=== PATIENT | male | born 1995 | race Caucasian/White ===

== ENCOUNTER 2020-01-27 22:11 | Inpatient (IN) | payer OTHER ==
[2020-01-28 00:16] LABS: Amphetamine Screen,Urine Not Detected (NotDetected); Barbiturate Screen,Urine Not Detected (NotDetected); Benzodiazepines Screen,Urine Not Detected (NotDetected); Cocaine Screen,Urine Not Detected (NotDetected); Methadone Screen, Urine Not Detected (NotDetected); Opiate Screen,Urine Not Detected (NotDetected); Oxycodone Screen, Urine Not Detected (NotDetected); Phencyclidine Screen,Urine Not Detected (NotDetected); Tricyclic Antidepressant,Urine Not Detected (NotDetected); Urn Cannabinoid Scrn Detected (NotDetected)
[2020-01-28] MEDS ORDERED: LORazepam 1 MG TAB PO STA ×3 (02:05→11:29)
[2020-01-28 02:33] LABS: HCT 43.6 % (39.0-53.0); HGB 14.4 gm/dL (13.0-17.5); MCH 28.8 pg (25.0-35.0); MCV 87.2 fL (80.0-100.0); Mean Platelet Volume 8.4; Platelet Count 215 k/uL (150-450); RDW 12.3 % (11.5-15.5); WBC 7.1 k/uL (3.8-10.6)
[2020-01-28 02:41] LABS: ALT 31 U/L (4-49); AST 33 U/L (17-59); African American GFR (CKD) >90 (>60 ml/min/1.73 sqM); Albumin 4.8 g/dL (3.5-5.0); Alkaline Phosphatase 84 U/L (38-126); Anion Gap 9 mmol/L; Blood Urea Nitrogen 20 mg/dL (9-20); Calcium 9.9 mg/dL (8.4-10.2); Carbon Dioxide 26 mmol/L (22-30); Chloride 105 mmol/L (98-107); Glucose 98 mg/dL (74-99); Non-African American GFR(CKD) >90 (>60 ml/min/1.73 sqM); Sodium 140 mmol/L (137-145); Total Bilirubin 0.3 mg/dL (0.2-1.3); Total Protein 7.4 g/dL (6.3-8.2)
--- NOTE | 2020-01-28 02:53 | ED ---
General Adult HPI - General Chief complaint: Psychiatric Symptoms Stated complaint: Mental Health Time Seen by Provider: 01/27/20 22:42 Source: patient, family, RN notes reviewed Mode of arrival: ambulatory Limitations: no limitations - History of Present Illness Initial comments: 24-year-old male presents to the emergency department for a chief complaint of depressive thoughts. She presents with his grandfather who is concerned. Patient states he was stating his girlfriend since he was 16 years old and not a few months ago she cheated on him and broke up with him. Patient states since this time he has felt worse and worse. He denies suicidal thoughts were that of harming himself but is slow to answer this question. Grandfather states he is concerned that patient has not been sleeping at all and hasn't been acting his normal self. Patient states he cannot stop his brain to try to sleep. Patient is very slow to answer all questions I ask him. - Related Data Allergies Allergy/AdvReac Type Severity Reaction Status Date / Time No Known Allergies Allergy Verified 01/27/20 22:33 Review of Systems ROS Statement: Those systems with pertinent positive or pertinent negative responses have been documented in the HPI. ROS Other: All systems not noted in ROS Statement are negative. Past Medical History Past Medical History: No Reported History History of Any Multi-Drug Resistant Organisms: None Reported Past Surgical History: No Surgical Hx Reported Past Psychological History: Depression Smoking Status: Never smoker Past Alcohol Use History: Rare Past Drug Use History: None Reported General Exam Limitations: no limitations General appearance: alert, in no apparent distress Head exam: Present: atraumatic, normocephalic, normal inspection Eye exam: Present: normal appearance, PERRL, EOMI. Absent: scleral icterus, conjunctival injection, periorbital swelling ENT exam: Present: normal exam, mucous membranes moist Neck exam: Present: normal inspection, full ROM. Absent: tenderness, meningismus, lymphadenopathy Respiratory exam: Present: normal lung sounds bilaterally. Absent: respiratory distress, wheezes, rales, rhonchi, stridor Cardiovascular Exam: Present: regular rate, normal rhythm, normal heart sounds. Absent: systolic murmur, diastolic murmur, rubs, gallop, clicks GI/Abdominal exam: Present: soft, normal bowel sounds. Absent: distended, tenderness, guarding, rebound, rigid Neurological exam: Present: alert Psychiatric exam: Present: depressed, flat affect Course Vital Signs 01/27/20 22:21 Temperature 98.1 F Pulse Rate 91 Respiratory 20 Rate Blood Pressure 148/83 O2 Sat by Pulse 100 Oximetry Medical Decision Making - Medical Decision Making Patient was seen and evaluated by EPS, recommending inpatient treatment. Patient will be transferred to an outpatient facility as we do not have any room in our mental health unit. Family is aware and agreeable to this. Patient to be certed by Dr. Cloud. Care signed out at 03:[address] Cloud - Lab Data Result diagrams: 01/28/20 02:17 01/28/20 02:17 Lab Results 01/27/20 01/28/20 01/28/20 Range/Units 23:55 02:17 02:17 WBC 7.1 (3.8-10.6) k/uL RBC 5.00 (4.30-5.90) m/uL Hgb 14.4 (13.0-17.5) gm/dL Hct 43.6 (39.0-53.0) % MCV 87.2 (80.0-100.0) fL MCH 28.8 (25.0-35.0) pg MCHC 33.0 (31.0-37.0) g/dL RDW 12.3 (11.5-15.5) % Plt Count 215 (150-450) k/uL Sodium 140 (137-145) mmol/L Potassium 4.0 (3.5-5.1) mmol/L Chloride 105 (98-107) mmol/L Carbon Dioxide 26 (22-30) mmol/L Anion Gap 9 mmol/L BUN 20 (9-20) mg/dL Creatinine 1.02 (0.66-1.25) mg/dL Est GFR (CKD-EPI)AfAm >90 (>60 ml/min/1.73 sqM) Est GFR (CKD-EPI)NonAf >90 (>60 ml/min/1.73 sqM) Glucose 98 (74-99) mg/dL Calcium 9.9 (8.4-10.2) mg/dL Total Bilirubin 0.3 (0.2-1.3) mg/dL AST 33 (17-59) U/L ALT 31 (4-49) U/L Alkaline Phosphatase 84 (38-126) U/L Total Protein 7.4 (6.3-8.2) g/dL Albumin 4.8 (3.5-5.0) g/dL Urine Opiates Screen Not Detected (NotDetected) Ur Oxycodone Screen Not Detected (NotDetected) Urine Methadone Screen Not Detected (NotDetected) Ur Propoxyphene Screen Not Detected (NotDetected) Ur Barbiturates Screen Not Detected (NotDetected) U Tricyclic Antidepress Not Detected (NotDetected) Ur Phencyclidine Scrn Not Detected (NotDetected) Ur Amphetamines Screen Not Detected (NotDetected) U Methamphetamines Scrn Not Detected (NotDetected) U Benzodiazepines Scrn Not Detected (NotDetected) Urine Cocaine Screen Not Detected (NotDetected) U Marijuana (THC) Screen Detected H (NotDetected) Disposition Clinical Impression: Depression Disposition: TRANSFER TO PSYCH HOSP/UNIT Condition: Fair Is patient prescribed a controlled substance at d/c from ED?: No Referrals: Lennox Kovacs DO [Primary Care Provider] - 1-2 days Time of Disposition: 02:53
[2020-01-28 03:19] LABS: Eosinophils # (M) 0.14 k/uL (0-0.7); Lymphocytes # (M) 2.63 k/uL (1.0-4.8); Monocytes # (M) 0.36 k/uL (0-1.0); Neutrophils # (M) 3.98 k/uL (1.3-7.7); Neutrophils % (M) 56 %; Nucleated Red Blood Cells 0 /100 WBC (0-0); Total Cells Counted 100
[2020-01-28] MEDS ORDERED: ACETAMINOPHEN TAB 325 MG TAB PO STA (11:29)
[2020-01-28] MEDS ORDERED: MAGNESIUM HYDROXIDE 2,400 MG/10 ML CUP PO PRN (19:53)
[2020-01-28] MEDS ORDERED: MAG HYDROX/AL HYDROX/SIMETH 30 ML CUP PO PRN (19:53)
[2020-01-28] MEDS: LORazepam 1 MG TAB PO PRN (23:01)
[2020-01-29] MEDS: ZIPRASIDONE 20 MG VIAL IM PRN ×2 (03:04→19:20)
[2020-01-29] MEDS: LORazepam 1 MG TAB PO PRN ×2 (06:45→16:29)
[2020-01-29] MEDS: NICOTINE 14MG/24HR PATCH TRANSDERM SCH (08:04)
[2020-01-29 08:14] LABS: Basophils % (A) 1 %; Eosinophils # (A) 0.1 k/uL (0-0.7); Eosinophils % (A) 1 %; HCT 46.8 % (39.0-53.0); HGB 15.5 gm/dL (13.0-17.5); Lymphocytes # (A) 1.4 k/uL (1.0-4.8); Lymphocytes % (A) 21 %; MCH 29.5 pg (25.0-35.0); MCHC 33.1 g/dL (31.0-37.0); MCV 89.2 fL (80.0-100.0); Mean Platelet Volume 8.3; Monocytes # (A) 0.6 k/uL (0-1.0); Monocytes % (A) 9 %; Neutrophils # (A) 4.3 k/uL (1.3-7.7); Neutrophils % (A) 64 %; Platelet Count 238 k/uL (150-450); RBC 5.25 m/uL (4.30-5.90); RDW 12.5 % (11.5-15.5); WBC 6.6 k/uL (3.8-10.6)
[2020-01-29 08:26] LABS: ALT 27 U/L (4-49); AST 27 U/L (17-59); African American GFR (CKD) >90 (>60 ml/min/1.73 sqM); Alkaline Phosphatase 68 U/L (38-126); Anion Gap 11 mmol/L; Blood Urea Nitrogen 15 mg/dL (9-20); Carbon Dioxide 26 mmol/L (22-30); Chloride 103 mmol/L (98-107); Cholesterol 232 mg/dL (<200); Glucose 127 mg/dL (74-99); HDL Cholesterol 66 mg/dL (40-60); LDL Cholesterol,Calculated 135 mg/dL (0-99); Non-African American GFR(CKD) >90 (>60 ml/min/1.73 sqM); Potassium 4.4 mmol/L (3.5-5.1); Sodium 140 mmol/L (137-145); Total Bilirubin 0.4 mg/dL (0.2-1.3); Total Protein 7.9 g/dL (6.3-8.2); Triglycerides 157 mg/dL (<150)
[2020-01-29] MEDS: QUEtiapine 25 MG TAB PO SCH ×3 (09:05→20:50)
[2020-01-29] MEDS: ESCITALOPRAM 10 MG TAB PO SCH ×2 (09:05→10:45)
--- NOTE | 2020-01-29 12:19 | P.HP ---
Psychiatric H&P - . H&P Date: 01/29/20 History & Physical: IDENTIFYING DATA: He is a 24-year-old small male admitted to the psychiatric unit voluntarily with depression and suicidal ideation HISTORY OF PRESENT ILLNESS: I reviewed the medical record and interviewed the patient. He was unable to provide a coherent history. He did not understand the reason for this hospitalization other than he came here at the behest of his grandfather. He perseverated that "all I need is to get back to work." He acknowledged that he "has not been doing well" since he broke up with his girlfriend 2 months ago. His answers to questions about depression, depressive symptoms, suicidality and psychotic symptoms werer confusing and very difficult to understand. According to the medical record his grandfather brought him to the emergency room. He was restless and fidgety. With the EPS nurse ask him about the breakup with girlfriend he closes his eyes and began rocking back and forth while breathing heavily. The EPS nurse spoke with his grandfather who reported that after the breakup he started drinking and missing work. 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 About 2 months ago (after breakup with girlfriend) he took the grandfather's truck to knot picker cloth his trailer in [place] to move back to [place]. The patient did not return and was found near [place] passed out in the truck with a loaded pistol. He told his gran dfather that he was not having thoughts of harming himself but made such statements as "what is it worth living?" His grandfather also reported that he has not been sleeping and has made paranoid statements about having cameras in the house or people watching him. The patient acknowledged that he has been unable to sleep but gave incoherent responses to other questions about his mood or thought. He did not answer questions about suicidal thoughts or wishes. PAST PSYCHIATRIC HISTORY: He denied a history of psychiatric hospitalizations. Denies he denied past history of mental health treatment PAST MEDICAL HISTORY: Denied ALLERGIES: NO KNOWN DRUG ALLERGIES SUBSTANCE USE HISTORY: He minimizes alcohol use and would not talk about the amount and frequency. He mentioned that he smoked marijuana in the past. His UDS was positive for marijuana and his breath alcohol level in the ED was negative. FAMILY PSYCHIATRIC/SUBSTANCE USE HISTORY: He is unaware of family history of psychiatric illness or substance use problems. LEGAL HISTORY: He denied SOCIAL HISTORY: He was born and raised in [place] by his mother and extended family. His parents when he was young. He has a younger brother and sister. He graduated from high school. He is not in the . He was single and has no children. He is working and living in [place] up until 2 months prior to admission. He broke up 2 months ago from a girl he began dating when he was 16 years old. MENTAL STATUS EXAM: He presented as a tall well-developed male with dark hair. He made eye contact but attempts did not appear to be attending to the interview. He had no distinguishing features or prominent physical abnormalities. He had a distressed facial expression. He was alert and oriented to person, place and time. He was restless to prevent agitated. He had no abnormal involuntary movements. Her speech was not spontaneous in her speech was halting with decreased volume and at times garbled and mumbled. His affect was dysphoric with a mixture of paranoia, anxiety and depression. He did not express clear suicidal ideation or wishes. He denied homicidal ideation. He appeared hopeless and helpless. He ruminated over this hospitalization. He did not express clear ID is of reference or paranoid ideation. He denied express delusional beliefs. His thinking was concrete and mentally organized, logical or coherent. He did not demonstrate clang associations, neologisms or blocking. He denied hallucinations and did not appear to be responding to internal stimuli. Global impression of intellect is average. He has limited awareness or understanding of his illness or need for mental health treatment. STRENGTHS: Supportive family, good health, history of stable employment WEAKNESSES: Increased alcohol use, recent breakup, poor insight or understanding of his mental illness or need for treatment IMPRESSION: He is a single 24-year-old male with no prior history of psychiatric illness or psychiatric treatment. He presented unit voluntarily with to mental history of increased alcohol use, impaired sleep, confusion, suicidal thoughts and paranoia. These symptoms developed after the breakup of a long-term relationship. The differential includes major to her mood disorder as well as new onset of a psychotic disorder. He should be treated inpatient basis with a combination of psychopharmacology and multimodal therapy. 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 Safety precautions. Consult medicine for initial physical exam and medical history. damper worker completed initial psychosocial assessment coordinate discharge and aftercare services. Begin Lexapro 10 mg daily and titrated according to clinical response and tolerance. Begin Geodon 25 mg by mouth twice a day and 50 mg at bedtime for treatment of paranoia and augmentation of the antidepressant. Ativan 1 mg by mouth 3 times a day when necessary for anxiety. Geodon 20 mg IM twice a day when necessary for agitation or aggressive behavior. Encourage participation in therapeutic groups and activities. Evaluate clinical status response to dg atment daily basis. Allergies Allergy/AdvReac Type Severity Reaction Status Date / Time No Known Allergies Allergy Verified 01/27/20 22:33 Vital Signs Temp 98.6 F 01/29/20 03:54 Pulse 86 01/29/20 03:54 Resp 16 01/29/20 03:54 BP 119/62 01/29/20 03:54 Pulse Ox 98 01/28/20 15:41 Laboratory Last Values WBC 6.6 k/uL (3.8-10.6) 01/29/20 08:00 RBC 5.25 m/uL (4.30-5.90) 01/29/20 08:00 Hgb 15.5 gm/dL (13.0-17.5) 01/29/20 08:00 Hct 46.8 % (39.0-53.0) 01/29/20 08:00 MCV 89.2 fL (80.0-100.0) 01/29/20 08:00 MCH 29.5 pg (25.0-35.0) 01/29/20 08:00 MCHC 33.1 g/dL (31.0-37.0) 01/29/20 08:00 RDW 12.5 % (11.5-15.5) 01/29/20 08:00 Plt Count 238 k/uL (150-450) 01/29/20 08:00 Neutrophils % 64 % 01/29/20 08:00 Neutrophils % (Manual) 56 % 01/28/20 02:17 Lymphocytes % 21 % 01/29/20 08:00 Lymphocytes % (Manual) 37 % 01/28/20 02:17 Monocytes % 9 % 01/29/20 08:00 Monocytes % (Manual) 5 % 01/28/20 02:17 Eosinophils % 1 % 01/29/20 08:00 Eosinophils % (Manual) 2 % 01/28/20 02:17 Basophils % 1 % 01/29/20 08:00 Neutrophils # 4.3 k/uL (1.3-7.7) 01/29/20 08:00 Neutrophils # (Manual) 3.98 k/uL (1.3-7.7) 01/28/20 02:17 Lymphocytes # 1.4 k/uL (1.0-4.8) 01/29/20 08:00 Lymphocytes # (Manual) 2.63 k/uL (1.0-4.8) 01/28/20 02:17 Monocytes # 0.6 k/uL (0-1.0) 01/29/20 08:00 Monocytes # (Manual) 0.36 k/uL (0-1.0) 01/28/20 02:17 Eosinophils # 0.1 k/uL (0-0.7) 01/29/20 08:00 Eosinophils # (Manual) 0.14 k/uL (0-0.7) 01/28/20 02:17 Basophils # 0.0 k/uL (0-0.2) 01/29/20 08:00 Nucleated RBCs 0 /100 WBC (0-0) 01/28/20 02:17 Manual Slide Review Performed 01/28/20 02:17 Sodium 140 mmol/L (137-145) 01/29/20 08:00 Potassium 4.4 mmol/L (3.5-5.1) 01/29/20 08:00 Chloride 103 mmol/L (98-107) 01/29/20 08:00 Carbon Dioxide 26 mmol/L (22-30) 01/29/20 08:00 Anion Gap 11 mmol/L 01/29/20 08:00 BUN 15 mg/dL (9-20) 01/29/20 08:00 Creatinine 0.90 mg/dL (0.66-1.25) 01/29/20 08:00 Est GFR (CKD-EPI)AfAm >90 (>60 ml/min/1.73 sqM) 01/29/20 08:00 Est GFR (CKD-EPI)NonAf >90 (>60 ml/min/1.73 sqM) 01/29/20 08:00 Glucose 127 mg/dL (74-99) H 01/29/20 08:00 Calcium 10.0 mg/dL (8.4-10.2) 01/29/20 08:00 Total Bilirubin 0.4 mg/dL (0.2-1.3) 01/29/20 08:00 AST 27 U/L (17-59) 01/29/20 08:00 ALT 27 U/L (4-49) 01/29/20 08:00 Alkaline Phosphatase 68 U/L (38-126) 01/29/20 08:00 Total Protein 7.9 g/dL (6.3-8.2) 01/29/20 08:00 Albumin 5.0 g/dL (3.5-5.0) 01/29/20 08:00 Triglycerides 157 mg/dL (<150) H 01/29/20 08:00 Cholesterol 232 mg/dL (<200) H 01/29/20 08:00 LDL Cholesterol, Calc 135 mg/dL (0-99) H 01/29/20 08:00 HDL Cholesterol 66 mg/dL (40-60) H 01/29/20 08:00 TSH 3.090 mIU/L (0.465-4.680) 01/29/20 08:00 Urine Opiates Screen Not Detected (NotDetected) 01/27/20 23:55 Ur Oxycodone Screen Not Detected (NotDetected) 01/27/20 23:55 Urine Methadone Screen Not Detected (NotDetected) 01/27/20 23:55 Ur Propoxyphene Screen Not Detected (NotDetected) 01/27/20 23:55 Ur Barbiturates Screen Not Detected (NotDetected) 01/27/20 23:55 U Tricyclic Antidepress Not Detected (NotDetected) 01/27/20 23:55 Ur Phencyclidine Scrn Not Detected (NotDetected) 01/27/20 23:55 Ur Amphetamines Screen Not Detected (NotDetected) 01/27/20 23:55 U Methamphetamines Scrn Not Detected (NotDetected) 01/27/20 23:55 U Benzodiazepines Scrn Not Detected (NotDetected) 01/27/20 23:55 Urine Cocaine Screen Not Detected (NotDetected) 01/27/20 23:55 U Marijuana (THC) Screen Detected (NotDetected) H 01/27/20 23:55 01/29/20 11:57
[2020-01-29 14:01] LABS: Hemoglobin A1C 5.2 % (4.0-6.0)
--- NOTE | 2020-01-29 16:38 | P.CONS ---
History of Present Illness - Reason for Consult Acute psychosis scleral medical clearance - History of Present Illness Patient is a 24-year-old male admitted because of acute psychosis patient had a recent breakup, patient came from [place] to [place] to commit suicide patient is completely incoherent and doesn't make sense patient does have tangentiality and patient does repeat himself. Patient drug screen is positive for marijuana may have used some other drugs that are undetectable and regular urine drug screen. Unable to get many much of the history although patient really give me history of chest pain cannot elaborate and then he said his fine. Review of Systems REVIEW OF SYSTEMS: Unable to obtain due to his acute psychosis Past Medical History Past Medical History: No Reported History History of Any Multi-Drug Resistant Organisms: None Reported Past Surgical History: No Surgical Hx Reported Past Psychological History: Depression Smoking Status: Never smoker Past Alcohol Use History: Rare Past Drug Use History: None Reported Medications and Allergies Allergies Allergy/AdvReac Type Severity Reaction Status Date / Time No Known Allergies Allergy Verified 01/27/20 22:33 Physical Exam Vitals: Vital Signs Temp Pulse Resp BP 01/29/20 13:00 97.8 F 01/29/20 03:54 98.6 F 86 16 119/62 01/28/20 19:49 100.4 F H 80 17 150/79 PHYSICAL EXAMINATION: GENERAL: The patient is alert and oriented x3, not in any acute distress. Well developed, well nourished. HEENT: Pupils are round and equally reacting to light. EOMI. No scleral icterus. No conjunctival pallor. Normocephalic, atraumatic. No pharyngeal erythema. No thyromegaly. CARDIOVASCULAR: S1 and S2 present. No murmurs, rubs, or gallops. PULMONARY: Chest is clear to auscultation, no wheezing or crackles. ABDOMEN: Soft, nontender, nondistended, normoactive bowel sounds. No palpable or ganomegaly. MUSCULOSKELETAL: No joint swelling or deformity. EXTREMITIES: No cyanosis, clubbing, or pedal edema. NEUROLOGICAL: Gross neurological examination did not reveal any focal deficits. SKIN: No rashes. Results CBC & Chem 7: 01/29/20 08:00 01/29/20 08:00 Labs: Abnormal Lab Results - Last 24 Hours (Table) 01/29/20 Range/Units 08:00 Glucose 127 H (74-99) mg/dL Triglycerides 157 H (<150) mg/dL Cholesterol 232 H (<200) mg/dL LDL Cholesterol, Calc 135 H (0-99) mg/dL HDL Cholesterol 66 H (40-60) mg/dL Assessment and Plan Plan: -Acute psychosis probably secondary to drug overdose management as per primary service -Major depression with suicidal ideation -Hyperlipidemia: Continue addressed as an outpatient starting with dietary manag ement Patient symptoms of altered mental status appears to be secondary to acute psychosis. Further management as per primary service.
[2020-01-29] MEDS ORDERED: QUEtiapine 50 MG TAB PO SCH (21:00)
[2020-01-30] MEDS: ZIPRASIDONE 20 MG VIAL IM PRN (05:27)
[2020-01-30] MEDS: ESCITALOPRAM 10 MG TAB PO SCH (09:16)
[2020-01-30] MEDS: NICOTINE 14MG/24HR PATCH TRANSDERM SCH ×2 (09:16→09:25)
[2020-01-30] MEDS: LORazepam 1 MG TAB PO PRN (09:17)
[2020-01-30] MEDS: QUEtiapine 25 MG TAB PO SCH (09:37)
[2020-01-30] MEDS ORDERED: ZIPRASIDONE 20 MG VIAL IM STA (09:41)
--- NOTE | 2020-01-30 13:36 | P.PN ---
Progress Note - Text Progress Note Date: 01/30/20 Clinical Problems: Unspecified psychotic disorder, rule out major depressive disorder with psychosis. Rule out schizophrenia, rule out schizoaffective disorder depressed, rule out rule out bipolar disorder depressed with psychotic features Interim history: I reviewed the medical record and attempted to interview the patient. He would not make eye contact or respond to questions. In the morning he was standing in the doorway with 1 foot in his room and the other in hallway. He was staring blankly at the door frame. He would not talk. He stood still except for clenching and releasing his fists. He is had no episodes of behavioral dyscontrol but is receive IM dose of Geodon due to concerns of potential aggressive behavior. He took his morning dose of Lexapro today and the initial dose of Seroquel last night. Mental status exam: He presented as a tall can see groomed 24-year-old male who is mute. He made no eye contact and would not answer questions. He had marked psychomotor immobility. He had distressed and preoccupied facial expression. He appeared paranoid and frightened. I could not evaluate his thought content her thought process due to the paucity of speech. He does not appear to be responding to internal stimuli. Assessment: He is markedly distressed. He presentation may not be related to a primary mood disorder but could be manifestation of major psychotic disorder. Plan: Continue inpatient treatment. Continue seeing precautions. Continue Seroquel and titrate to 400 mg at bedtime. Continue Lexapro 10 mg daily. Continue Geodon 20 mg IM twice a day for agitation acute psychosis. Continue Ativan 1 mg 3 times a day when necessary for anxiety and restlessness. Evaluate clinical status response to treatment on a daily basis. Encourage participation as tolerated in therapeutic groups and activities.
[2020-01-30] MEDS ORDERED: QUEtiapine 100 MG TAB PO SCH (21:00)
[2020-01-31] MEDS ORDERED: OLANZapine 5 MG TAB PO STA (00:33)
[2020-01-31] MEDS: OLANZapine 10 MG VIAL IM STA ×2 (00:35→00:45)
[2020-01-31] MEDS: LORazepam 1 MG TAB PO PRN ×2 (06:15→15:06)
[2020-01-31] MEDS: ESCITALOPRAM 10 MG TAB PO SCH (08:14)
[2020-01-31] MEDS: NICOTINE 14MG/24HR PATCH TRANSDERM SCH (08:15)
[2020-01-31] MEDS: LORazepam 2 MG/ML INJ IM PRN ×2 (08:36→18:12)
--- NOTE | 2020-01-31 14:01 | P.PN ---
Progress Note - Text Progress Note Date: 01/31/20 Clinical Problems: Schizophrenia, rule out major depressive disorder with psychosis, rule out schizoaffective disorder depressed, rule out rule out bipolar disorder depressed with psychotic features Interim history: I reviewed the medical record, attempted to interview the patient and discuss his treatment and treatment plan during team meeting. He is marked psychomotor slowing and unresponsiveness consistent with catatonia. This morning he was standing motionless in the hallway. He would not make eye contact or respond to questions. After receiving 1 mg of Ativan IM, he made eye contact and spoke in a soft barely audible voice. I asked about "voices" he shook his head to the positive but would not talk about the experience. He was complying with 100 mg dose of Seroquel last night. He had several episodes of immobility and received several doses of Geodon IM as well as olanzapine 5 mg IM. Mental status exam: He presented as a tall can see groomed 24-year-old male who is mute. He made no eye contact and would not answer questions. He had marked psychomotor immobility. He had distressed and preoccupied facial expression. He appeared paranoid and frightened. I could not evaluate his thought content her thought process due to the paucity of speech. He does not appear to be responding to internal stimuli. Assessment: She has signs and symptoms of catatonia. I suspect that his presentation is related to the new onset of a primary psychotic disorder. Plan: Continue inpatient treatment. Continue seeing precautions. Continue Seroquel and titrate to 400 mg at bedtime. He refuses oral Seroquel then switch over to an antipsychotic that is available as an oral and intramuscular preparation. Continue Lexapro 10 mg daily. Ativan 1 mg IM every 6 hours when necessary for restlessness. Continue Geodon 20 mg IM twice a day for agitation acute psychosis. Continue Ativan 1 mg by mouth 3 times a day when necessary for anxiety and restlessness. Evaluate clinical status response to treatment on a daily basis. Encourage participation as tolerated in therapeutic groups and activities.
[2020-01-31] MEDS ORDERED: OLANZapine 10 MG VIAL IM PRN (14:20)
[2020-01-31] MEDS ORDERED: QUEtiapine 200 MG TAB PO SCH (21:00)
[2020-02-01] MEDS: LORazepam 1 MG TAB PO PRN (06:21)
[2020-02-01] MEDS: ESCITALOPRAM 10 MG TAB PO SCH (08:25)
[2020-02-01] MEDS: NICOTINE 14MG/24HR PATCH TRANSDERM SCH (08:25)
[2020-02-01] MEDS: LORazepam 2 MG/ML INJ IM PRN (13:25)
[2020-02-01] MEDS: HALOPERIDOL LACTATE 5 MG/ML 1 ML VIAL IM PRN (13:40)
--- NOTE | 2020-02-01 13:53 | P.MHFACE ---
Face to Face Restrain/Seclus - Evaluation Patient's Immediate Situation: Endangers self safety Patient's Reaction to the Intervention: Fearful, Bizarre, Restless Patient's Medical & Behavioral Condition: Drowsy, Auditory hallucinations, Bizarre behavior Need to Continue or Terminate Restraint or Seclusion: Continue
--- NOTE | 2020-02-01 14:33 | P.PN ---
Progress Note - Text Progress Note Date: 02/01/20 Clinical Problems: Schizophrenia with catatonic behavior, rule out major depressive disorder with psychosis, rule out schizoaffective disorder depressed, rule out rule out bipolar disorder depressed with psychotic features Interim history: I reviewed the medical record, attempted to interview the patient and discuss his treatment and treatment plan during team meeting. He continues to show signs and symptoms of catatonia with marked psychomotor slowing and mutism. He periodically mumbles about psychotic symptoms such as "hearing voices". I observed him standing in the hallway believing his mouth as though he were responding to internal stimuli. He began choking himself in the lunchroom. He would not respond to redirection by staff. His management required restraint. I change his when necessary medications from olanzapine to help so the nursing Administered built antipsychotic and Ativan. Mental status exam: He presented as a tall can see groomed 24-year-old male who is mute. He made not make eye contact and would not answer questions. He had marked psychomotor immobility. He had distressed and preoccupied facial expression. He appeared paranoid and frightened. I could not evaluate his thought content her thought process due to the paucity of speech. He does appear to be responding to internal stimuli. Assessment: He is acutely psychotic, paranoid and has marked psychomotor retardation. I suspect that his presentation is related to the new onset of a primary psychotic disorder. Plan: Continue inpatient treatment. Continue seeing precautions. Continue Seroquel and titrate to 400 mg at bedtime. He refuses oral Seroquel then switch over to an antipsychotic that is available as an oral and intramuscular preparation. Continue Lexapro 10 mg daily. discontinue Geodon 10 mg IM3 times a day. Begin Haldol 5 mg IM every 6 hours when necessary for agitation acute psychosis. Increase IM Ativan to 2 mg every 6 hours for agitation acute psychosis. Continue Ativan 1 mg by mouth 3 times a day when necessary for anxiety and restlessness. Evaluate clinical status response to treatment on a daily basis. Encourage participation as tolerated in therapeutic groups and activities.
[2020-02-01] MEDS ORDERED: QUEtiapine 100 MG TAB PO SCH (21:00)
[2020-02-02] MEDS: ESCITALOPRAM 10 MG TAB PO SCH (09:22)
[2020-02-02] MEDS: LORazepam 1 MG TAB PO PRN (09:22)
[2020-02-02] MEDS: NICOTINE 14MG/24HR PATCH TRANSDERM SCH (09:22)
[2020-02-02] MEDS: HALOPERIDOL LACTATE 5 MG/ML 1 ML VIAL IM PRN (10:00)
--- NOTE | 2020-02-02 11:07 | P.PN ---
Progress Note - Text Progress Note Date: 02/02/20 Interval history: Patient seen in cross [facility] today. Patient had been placed in restraints due to concerns of self-harm and this is also face to face evaluation regarding restraint placement. Per nursing staff patient was choking himself and was subsequently placed in restraints for safety. He had been on one-to-one precautions. He hadn't episode yesterday where he was placed in restraints per history. Patient per staff has been not very verbal. Patient does not relay anything about the incident prompting restraints. He is able to say his first name. At the end of the session he makes reference to his grandfather bringing him into the hospital. Mental status exam: Patient is able to open his eyes. He is oriented to his first name. He is minimally verbal. At the end of the session he does make reference to his grandfather bringing him into the hospital. He does not show any current agitation. He does not make any statements about thoughts of harm to self or others. Plan: Patient was placed in 4-point restraints for his safety. We'll continue to monitor his status and monitor his ongoing response to medication regimen. After restraints are removed pending patient status we will look at one-to-one monitoring.
[2020-02-02] MEDS: LORazepam 2 MG/ML INJ IM PRN (16:50)
--- NOTE | 2020-02-02 16:51 | P.PN ---
Progress Note - Text Progress Note Date: 02/02/20 Restraining evaluation: Patient is seen again for evaluation after being placed in restraints. Patient was taken out of restraints earlier today and then was found by staff choking himself again and was placed back in restraints. Patient is seen in the restraining room. He has his eyes closed and is nonverbal. He is noted to have some tremoring of the lower extremities which stops towards the end of the session. He does not display any agitation. He does not open his eyes with command. He does not respond verbally to any questions. We'll continue to monitor his response to treatment and monitor for any medication side effects.
[2020-02-02] MEDS: QUEtiapine 400 MG TAB PO SCH (23:51)
[2020-02-03] MEDS: LORazepam 2 MG/ML INJ IM PRN ×2 (09:55→16:47)
[2020-02-03] MEDS: ESCITALOPRAM 10 MG TAB PO SCH (09:55)
[2020-02-03] MEDS: NICOTINE 14MG/24HR PATCH TRANSDERM SCH (09:55)
[2020-02-03] MEDS: ACETAMINOPHEN TAB 325 MG TAB PO PRN ×2 (14:16→19:57)
--- NOTE | 2020-02-03 14:28 | CT ---
EXAMINATION TYPE: CT brain wo con DATE OF EXAM: 02/03/2020 COMPARISON: None HISTORY: Patient poor historian. Fall. Hit head. Pain. CT DLP: 1012.7 mGycm Automated exposure control for dose reduction was used. Ventricles and sulci appear normal. There is no mass effect nor midline shift. There is no sign of in tracranial hemorrhage. The calvarium is intact. There is no evidence of cerebral edema. IMPRESSION: Negative unenhanced head CT scan.
--- NOTE | 2020-02-03 16:11 | P.PN ---
Progress Note - Text Progress Note Date: 02/03/20 Interval history: Patient is seen in cross coverage again today. He had a fall earlier on the unit, relays that he lost his balance and made reference to hitting his head. A CT of the brain was done which was negative. He does describe having some headache. He has been given Tylenol. He does state that he is compliant with taking his psychotropic medications today he is holding some pictures of family in his hand and is able to name members of his family. Mental status exam: He is alert, seated in the seclusion/restraint room with staff present. He is verbal. He describes his mood as sad related to missing his family. He denies any thoughts of harm to self or others, he denies any current hallucinations. He seems to relay that he was having some hallucinations previously. Per staff it sounds like he had verbalized some concerns about a microchip earlier. Plan: Patient will be maintained on current psychotropic medication regimen. 2 new to monitor for any medication side effects and monitor his ongoing response to treatment. We'll continue to monitor regarding any self-harm behaviors.
[2020-02-03] MEDS: QUEtiapine 400 MG TAB PO SCH (19:57)
[2020-02-03] MEDS: HALOPERIDOL LACTATE 5 MG/ML 1 ML VIAL IM PRN (20:31)
[2020-02-04] MEDS: ESCITALOPRAM 10 MG TAB PO SCH (09:05)
[2020-02-04] MEDS: HALOPERIDOL 5 MG TAB PO SCH ×4 (09:51→23:55)
[2020-02-04] MEDS: LORazepam 1 MG TAB PO PRN (09:52)
--- NOTE | 2020-02-04 14:22 | P.PN ---
Progress Note - Text Progress Note Date: 02/04/20 Clinical Problems: Schizophrenia, rule out major depressive disorder with psychosis, rule out schizoaffective disorder depressed, rule out rule out bipolar disorder depressed with psychotic features Interim history: I reviewed the medical record, attempted to interview the patient and discuss his treatment and treatment plan during team meeting. He was placed in restraints twice on Tuesday for self injurious behavior. We placed him on one-to-one when he began attempting to choke himself on Tuesday. Over the weekend he began banging his head. Computed tomography scan from 02/03/2020 was negative. This afternoon the patient was struggling with the one-to-one staff attempting to bang his head on the window and a bed rail. Nursing reported that he lifted the mattress and hit his head on the metal bar on the bed. The medicine golf tournament consultant recommended MRI and neurology consult. She was minimally responsive. He made occasional eye contact. In response to questions about auditory hallucinations (places) he thought his head to the positive. Nursing reports that he is often appears to be responding to internal stimuli. Mental status exam: He presented as a tall can see groomed 24-year-old male who is mute. He made no eye contact and would not answer questions. He had marked psychomotor immobility. He had distressed and preoccupied facial expression. He appeared paranoid and frightened. I could not evaluate his thought content her thought process due to the paucity of speech. He does not appear to be responding to internal stimuli. Assessment: He remains markedly psychotic and is becoming more self injurious. Plan: Continue inpatient treatment. Continue safety recautions with one-to-one. Continue Seroquel 400 mg at bedtime. Begin Haldol 2.5 mg twice a day and titrated according to clinical response and tolerance. Continue Lexapro 10 mg daily. Ativan 1 mg IM every 6 hours when necessary for restlessness. Haldol 5 mg IM every 6 hours when necessary for agitation acute psychosis. MRI and neurology consult per medicine golf tournament consultant. Continue Ativan 1 mg by mouth 3 times a day when necessary for anxiety and restlessness. Evaluate clinical status response to treatment on a daily basis. Encourage participation as tolerated in therapeutic groups and activities.
[2020-02-04] MEDS ORDERED: LORazepam 1 MG TAB PO STA (14:58)
[2020-02-04 15:00] VITALS: BMI 23.9
--- NOTE | 2020-02-04 19:17 | P.PN ---
Progress Note - Text Progress Note Date: 02/04/20 Presenting complaint: Depression Interval history: Patient admitted for psychotic behavior and self injury behavior. I was called yesterday patient had bumped his head on purpose. I ordered neurochecks. And a computed tomography scan of the brain. No abnormality was found. Today so the patient around noontime. Patient had eaten all his lunch. Spoke with the staff has been up and about in the hallway with no support. Due to history is taking is rather reluctant to talk. Often keep quite. He did mention that may be some blurriness of the vision and slight headache. No weakness in any particular side. Review of systems: Was done for constitutional, cardiovascular, GI, pulmonary. Neurological relevant finding as above On examination: VITAL SIGNS: 98.8, 94, 20, 105/67, 96% on room air GENERAL APPEARANCE: Sitting over a chair, looking downwards fair sitting balance. HEENT: Normal external appearance of nose and ear. Oral cavity normal EYES: Pupils equal. Conjunctiva normal. NECK: JVD not raised. Mass not palpable. RESPIRATORY: Respiratory effort normal. Lungs clear to auscultation. CARDIOVASCULAR: First and second sounds normal. No edema. ABDOMEN: Soft. Liver and spleen not palpable. No tenderness. No mass palpable. PSYCHIATRY: Rather depressed appearing, will also only occasional questions Neurological: Patient is now. Neurological focal findings. Has been noted to be walking up and down the hallway. No trouble walking. INVESTIGATIONS, reviewed in the clinical context: Computed tomography scan of the brain negative Assessment: -Patient has been on purpose attempting to bump his head against the wall or the floor. Computed tomography scan of the brain was unremarkable. Patient is not a good historian. Given symptoms slight headache and questionable change in vision will briefly and take the diagnosis of concussions and order an MRI of the brain with and without contrast. Also neurological consultation done. -Hyperlipidemia -Possible recreational marijuana use -Severe depression -Psychosis Plan: Begin DC the neurochecks. Patient's been up and about in the hallway. Tolerating his meals. MRI of the brain with and without contrast is being ordered. Also neurology consultation was done to make sure we are not missing anything. This was discussed in detail with the nurse. Thank you Dr. Uribe
[2020-02-04] MEDS: QUEtiapine 400 MG TAB PO SCH (23:53)
[2020-02-05] MEDS: ESCITALOPRAM 10 MG TAB PO SCH (08:01)
[2020-02-05] MEDS: HALOPERIDOL 5 MG TAB PO SCH ×4 (08:01→20:36)
[2020-02-05] MEDS: LORazepam 1 MG TAB PO PRN (11:23)
--- NOTE | 2020-02-05 13:16 | P.CNNES ---
History of Present Illness Consult date: 02/05/20 Requesting physician: Napoleon Kumar Reason for Consult: Patient hit his head, complains of headache and blurred vision History of Present Illness: Patient is a 24-year-old male, who was admitted to mental health unit on 01/28/2024 chief complaints of depressive thoughts. Patient recently broke up from his girlfriend. Patient apparently hear voices. Patient yesterday was hearing voices. He got up from the bed, hit his head on the net on the window. It was a mild impact. Did not lose consciousness. He started complaining of headache afterwards. This prompted neurology consultation. According to the nursing aid, patient walks fine, patient at present denies headache any problem with the vision. Patient was laying in the bed, sleeping. When I woke him up, he has slow mentation, would not answer to questions and required repeated attempts to ask. Patient's blood test, including CBC and CMP is normal. His urine drug screen positive for marijuana. Patient's cholesterol is 232, LDL 135, HDL 66 and t riglycerides 157. Hemoglobin A1c 5.2. TSH normal 3.090. Review of Systems Patient denies headache, problem with vision, denies neck pain. Denies any chest pain shortness of breath. Patient would not answer to most of the questions, therefore review of systems is limited. Past Medical History Past Medical History: No Reported History History of Any Multi-Drug Resistant Organisms: None Reported Past Surgical History: No Surgical Hx Reported Past Psychological History: Depression Smoking Status: Never smoker Past Alcohol Use History: Rare Past Drug Use History: None Reported Medications and Allergies Allergies Allergy/AdvReac Type Severity Reaction Status Date / Time No Known Allergies Allergy Verified 01/27/20 22:33 Physical Examination - Vital Signs Vital Signs: Vital Signs Temp Pulse Resp BP Pulse Ox 02/05/20 06:35 99.0 F 102 H 17 160/98 99 02/04/20 19:09 99.2 F 02/04/20 13:21 98.8 F 94 20 105/67 96 On examination patient is a young male, who is somnolent, laying in the bed. Patient has a flat affect. Speech and language functions are normal. Pupils are round and reactive to light, visual riley are full, extraocular muscles intact, face is symmetric and tongue protrudes the midline. Palatal e levation and sensation normal. Hearing appears normal. Shoulder shrug normal. On muscle strength testing there is no pronator drift and the strength is normal in arms and legs. Reflexes are 1+ to 2 and plantars withdrawal bilaterally. Sensory touch is equal. No ataxia for [id number] testing. Tone and bulk of muscles normal. Patient did not walk however according to the nursing report, he walks fine. No carotid bruit or murmur, abdomen soft nontender. Results - Laboratory Findings CBC and BMP: 01/29/20 08:00 01/29/20 08:00 Abnormal Lab Findings: Abnormal Labs 01/27/20 01/29/20 23:55 08:00 Glucose 127 H Triglycerides 157 H Cholesterol 232 H LDL Cholesterol, Calc 135 H HDL Cholesterol 66 H U Marijuana (THC) Screen Detected H Assessment and Plan Assessment: * Status post minor head injury due to voluntary hitting head on the Metallic net of the window. At present patient has no headache or any focal symptoms. * Depression with psychosis. Plan: * Patient apparently had an MRI of the brain, which I reviewed is normal. Official report is pending. * Patient has no headache on any neurological symptoms. * Neurology will sign off. Please call neurology if any concerns. Addendum: MRI revealed no acute process. 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 May need an ENT consult. Slightly abnormal increased degree of perineural fluid surrounding the optic nerve. Correlate with ophthalmologic exam to exclude papilledema. If there is further clinical concern for pseudotumor cerebri, the lumbar puncture with opening and closing pressures could be considered. Patient at present has no headache, no visual symptoms, therefore would not pursue lumbar puncture at this time. Patient may benefit from ophthalmologic examination as an outpatient.
--- NOTE | 2020-02-05 13:51 | P.PN ---
Progress Note - Text Progress Note Date: 02/05/20 Clinical Problems: Schizophrenia, rule out major depressive disorder with psychosis, rule out schizoaffective disorder depressed, rule out rule out bipolar disorder depressed with psychotic features Interim history: I reviewed the medical record, interviewed the patient and discuss his treatment and treatment plan during team meeting. He was more responsive than on prior encounters. He sat up and out of bed and mumbled responses to questions. He stated that he is "better" and is ready to go home. In response to questions about psychotic symptoms he denied that he is "hearing voices". He remains on one-to-one due to repeated self-harm attempts. He is not attempted to injure himself since yesterday afternoon. He has been compliant with medications. He attended one therapeutic group yesterday. Mental status exam: He presented as a tall can see groomed 24-year-old male who did not make eye contact. He had marked psychomotor slowing. He had distressed and preoccupied facial expression. He appeared paranoid and frightened. He did not express clear paranoid thoughts, ideation or police. However, he continues to have paucity of speech and paucity of content. He does not appear to be responding to internal stimuli. Assessment: He remains markedly psychotic. Plan: Continue inpatient treatment. Continue safety recautions with one-to-one. Continue Seroquel 400 mg at bedtime. Continue Haldol 2.5 mg twice a day and titrated according to clinical response and tolerance. Continue Lexapro 10 mg daily. Ativan 1 mg IM every 6 hours when necessary for restlessness. Haldol 5 mg IM every 6 hours when necessary for agitation acute psychosis. MRI and neuro logy consult per medicine consultants intern. Continue Ativan 1 mg by mouth 3 times a day when necessary for anxiety and restlessness. Evaluate clinical status response to treatment on a daily basis. Encourage participation as tolerated in therapeutic groups and activities.
--- NOTE | 2020-02-05 15:24 | MR ---
EXAMINATION TYPE: MR brain wo/w con DATE OF EXAM: 02/05/2020 COMPARISON: CT brain dated 02/03/2020 HISTORY: Headaches, blurred vision TECHNIQUE: Multiplanar, multisequence images of the brain and brainstem is performed without and with IV contras t, utilizing 7.5 mL intravenous Gadavist . FINDINGS: Diffusion weighted images demonstrate no evidence of a recent infarct or other diffusion ab normality. There is no extra-axial fluid collection or significant white matter signal abnormality a lthough FLAIR images are limited by patient motion despite repeat imaging. The ventricular system an d cisternal spaces are normal in size and appearance. The brain volume is age appropriate. Midline structures demonstrate normal morphology. The craniocervical junction appears within normal limits. Post contrast images demonstrate no abnormal enhancement. The dural venous sinuses appear pa tent. The visualized sinuses are clear and the globes are intact. There is slightly abnormal increase d T2 signal surrounding the optic nerves with slight tortuous course on the left. No tonsillar hernia tion or partially empty sella turcica seen. Possible Thornwaldt cyst centrally in the posterior nasop harynx however direct visualization is recommended as this is expected to be higher signal on T2-weig hted imaging. IMPRESSION: 1. No acute infarct, midline shift or mass effect. No abnormal intracranial enhancement. 2. 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 3. FLAIR images are limited by patient motion despite repeat imaging however no gross white matter ch anges are seen. 4. Slightly abnormal increased degree of perineural fluid surrounding the optic nerves. Correlate wit h ophthalmologic exam to exclude papilledema. If there is further clinical concern for pseudotumor ce rebri the lumbar puncture with opening and closing pressure could be considered.
[2020-02-05] MEDS: QUEtiapine 400 MG TAB PO SCH (20:37)
[2020-02-06 07:05] VITALS: RESP 16
[2020-02-06] MEDS: ESCITALOPRAM 10 MG TAB PO SCH (08:20)
[2020-02-06] MEDS: HALOPERIDOL 5 MG TAB PO SCH ×4 (08:20→21:20)
--- NOTE | 2020-02-06 13:26 | P.PN ---
Progress Note - Text Progress Note Date: 02/06/20 Clinical Problems: Schizophrenia, rule out major depressive disorder with psychosis, rule out schizoaffective disorder depressed, rule out rule out bipolar disorder depressed with psychotic features Interim history: I reviewed the medical record, interviewed the patient and discuss his treatment and treatment plan during team meeting. He complained of feeling "tired" and I believe he also complained about being lightheaded. He appeared sedated and had long delays in response to questions. He mumbled answers that were difficult to understand and refused to repeat himself. The MRI of the brain dated 02/05/2020 showed no infarct, midline shift or mass effect.. There was a possible foreign walled cyst, FLAIR images are limited by patient motion despite repeated imaging. He has a slightly abnormal increased degree of perineural fluid surrounding Nerves. The radiologist recommended correlation with the boiler house mechanic exam to conclude papilledema. Mental status exam: He presented as a tall can see groomed 24-year-old male who did not make eye contact. He had marked psychomotor slowing. He had distressed and preoccupied facial expression. He appeared paranoid and frightened. He did not express clear paranoid thoughts, ideation or police. However, he continues to have paucity of speech and paucity of content. He does not appear to be responding to internal stimuli. Assessment: He is no longer catatonic or displayed self-injurious behaviors. He was difficult to evaluate the severity of his psychotic symptoms because he is minimally cooperative with the examination. Plan: Continue inpatient treatment. Continue safety recautions with one-to-one. Reconsult medicine regarding the MRI findings. Continue Seroquel 400 mg at bedtime. Continue Haldol 2.5 mg 4 times a day. Continue Lexapro 10 mg daily. Ativan 1 mg IM every 6 hours when necessary for restlessness. Haldol 5 mg IM every 6 hours when necessary for agitation acute psychosis. Continue Ativan 1 mg by mouth 3 times a day when necessary for anxiety and restlessness. Evaluate clinical status response to treatment on a daily basis. Encourage participation as tolerated in therapeutic groups and activities.
[2020-02-06] MEDS: ACETAMINOPHEN TAB 325 MG TAB PO PRN (15:37)
[2020-02-06] MEDS: LORazepam 2 MG/ML INJ IM PRN (16:04)
--- NOTE | 2020-02-06 16:11 | P.PN ---
Subjective Progress Note Date: 02/06/20 Patient was seen for a follow-up, as yesterday he was very drowsy, not providing appropriate history. Patient continues be somewhat somnolent, very slow mentation, prolonged latency to answer questions. Patient states that he has headaches 03/14. States he feels lost, confused. States his whole head hurts, as if it will explode. He denies nausea or vomiting although does admit to light and noise sensitivity. Patient states that he has been having headaches for long time. I asked if he has been having headaches for few days, weeks or months, states "few days". I spoke to patient's mother on the phone, who states the patient has been complaining of headaches only for past couple months. She was attributing his headaches to perhaps caffeine withdrawal, or withdrawal from marijuana. She als o states that patient's memory has been also affected. Objective - Vital Signs Vital signs: Vital Signs Temp 97.4 F L 02/06/20 12:00 Pulse 80 02/06/20 06:20 Resp 16 02/06/20 06:20 BP 110/68 02/06/20 06:20 Pulse Ox 99 02/05/20 06:35 - Exam On examination patient is a young male. Patient appears somewhat encephalopathic. He appears to have very slow mentation, prolonged latency time to answer questions. Appears spacey at times. Patient has warts in his hands. Pupils are round and reacting, visual riley are full, extraocular muscles are intact. Face is symmetric, tongue protrudes the midline. Palatal elevation and sensation normal. Muscle strength is normal in the arms and legs. No ataxia. Tone and bulk of muscles normal. Gait appears normal. - Labs CBC & Chem 7: 01/29/20 08:00 01/29/20 08:00 Assessment and Plan Assessment: * New onset headaches, with some mental status change and abnormal brain MRI with evidence of prominent fluid around optic nerves. Rule out meningitis/encephalitis. * Status post minor head injury due to voluntary hitting head on the metallic net of the window. At present patient has no headache or any focal symptoms. * Depression with psychosis. Plan: * MRI revealed no acute process. 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 May need an ENT consult. * MRI of the brain with and without contrast also revealed slightly abnormal increased degree of perineural fluid surrounding the optic nerve. Correlate with ophthalmologic exam to exclude papilledema. If there is further clinical concern for pseudotumor cerebri, the lumbar puncture with opening and closing pressures could be considered. * With his new onset headaches, mental status change, would recommend lumbar puncture to check for opening pressure, and also to send spinal fluid to rule out meningitis encephalitis. * We will check EEG. * Patient to be transferred to medical for for further testing. * I spoke to patient's mother in detail, informed her about results of MRI and recommendation of lumbar puncture. Patient and his mother both agreed and consented for lumbar puncture. * Discussed with Dr. Kumar.
[2020-02-06 20:30] LABS: Basophils % (A) 1 %; Eosinophils # (A) 0.1 k/uL (0-0.7); Eosinophils % (A) 2 %; HCT 42.8 % (39.0-53.0); HGB 14.3 gm/dL (13.0-17.5); Lymphocytes # (A) 2.3 k/uL (1.0-4.8); Lymphocytes % (A) 34 %; MCH 29.9 pg (25.0-35.0); MCHC 33.4 g/dL (31.0-37.0); MCV 89.6 fL (80.0-100.0); Mean Platelet Volume 8.6; Monocytes # (A) 0.5 k/uL (0-1.0); Monocytes % (A) 8 %; Neutrophils # (A) 3.6 k/uL (1.3-7.7); Neutrophils % (A) 53 %; Platelet Count 213 k/uL (150-450); RBC 4.78 m/uL (4.30-5.90); RDW 12.4 % (11.5-15.5); WBC 6.8 k/uL (3.8-10.6)
[2020-02-06 20:38] LABS: ALT 35 U/L (4-49); AST 44 U/L (17-59); African American GFR (CKD) >90 (>60 ml/min/1.73 sqM); Albumin 4.1 g/dL (3.5-5.0); Alkaline Phosphatase 60 U/L (38-126); Anion Gap 7 mmol/L; Blood Urea Nitrogen 21 mg/dL (9-20); Calcium 9.7 mg/dL (8.4-10.2); Carbon Dioxide 29 mmol/L (22-30); Chloride 102 mmol/L (98-107); Glucose 97 mg/dL (74-99); Non-African American GFR(CKD) >90 (>60 ml/min/1.73 sqM); Sodium 138 mmol/L (137-145); Total Bilirubin 0.2 mg/dL (0.2-1.3); Total Protein 6.3 g/dL (6.3-8.2)
--- NOTE | 2020-02-06 21:18 | P.EN ---
02/06/2020. Discussed with Dr. Simpson from neurology. He called me about this patient's neuro workup. He is to be speaking to interventional radiology regarding opening pressure. We'll follow his plan. as of yesterday patient is up and walking up and down the [place] and eating on his meals-high do not believe to be any meningitis or encephalitis.. Thank you Dr. Simpson
[2020-02-06] MEDS: QUEtiapine 400 MG TAB PO SCH (21:20)
[2020-02-06 21:54] LABS: Erythrocyte Sedimentation Rate 2 mm/hr (0-15)
[2020-02-07 07:06] VITALS: BP 125/70; PULSE 70; TEMP 97.9
[2020-02-07] MEDS: ESCITALOPRAM 10 MG TAB PO SCH (09:00)
[2020-02-07] MEDS: HALOPERIDOL 5 MG TAB PO SCH (09:00)
== END 2020-02-07 10:56 | disposition short-term general hospital (02) | DRG 885 ==
LOC: EC 22:11 → 3MHU 01-28 19:38
PROVIDERS: ADMIT Psychiatry & Neurology Psychiatry; ATTEND Psychiatry & Neurology Psychiatry
DX: F32.3 Major depressive disorder, single episode, severe with psychotic features (principal); R45.851 Suicidal ideations; S09.90XA Unspecified injury of head, initial encounter; R51 Headache; R42 Dizziness and giddiness; H53.8 Other visual disturbances; F12.90 Cannabis use, unspecified, uncomplicated; E78.5 Hyperlipidemia, unspecified; R07.9 Chest pain, unspecified; Z78.1 Physical restraint status; W01.198A Fall on same level from slipping, tripping and stumbling with subsequent striking against other object, initial encounter
CPT/HCPCS: 36415; 70450; 70553; 80053; 80061; 80306; 82075; 82550; 83036; 84443; 85025; 85652; 86780; 99285

== ENCOUNTER 2020-02-07 10:19 | Inpatient (IN) | payer OTHER ==
[2020-02-07] MEDS ORDERED: CALCIUM CARBONATE 500 MG CHEWABLE PO PRN (11:55)
[2020-02-07] MEDS ORDERED: ONDANSETRON 4 MG/2 ML VIAL IVP PRN (11:55)
[2020-02-07] MEDS ORDERED: MAG HYDROX/AL HYDROX/SIMETH 30 ML CUP PO PRN (11:55)
[2020-02-07] MEDS ORDERED: ACETAMINOPHEN TAB 325 MG TAB PO PRN (11:55)
[2020-02-07] MEDS ORDERED: NALOXONE 0.4 MG/ML 1 ML VIAL IV PRN (11:55)
[2020-02-07] MEDS ORDERED: MAGNESIUM HYDROXIDE 2,400 MG/10 ML CUP PO PRN (11:55)
[2020-02-07] MEDS ORDERED: LACTULOSE 20 GM/30 ML CUP PO PRN (11:55)
[2020-02-07] MEDS ORDERED: HALOPERIDOL LACTATE 5 MG/ML 1 ML VIAL IM PRN (12:28)
[2020-02-07] MEDS ORDERED: LORazepam 2 MG/ML INJ IM PRN (12:29)
[2020-02-07] MEDS: LORazepam 1 MG TAB PO PRN (12:38)
[2020-02-07] MEDS: HALOPERIDOL 5 MG TAB PO SCH ×3 (13:14→22:08)
[2020-02-07 13:29] LABS: Mean Platelet Volume 8.7; Platelet Count 211 k/uL (150-450)
[2020-02-07 13:34] LABS: INR 1.1 (<1.2); Prothrombin Time 11.3 sec (9.0-12.0)
--- NOTE | 2020-02-07 17:04 | EEG ---
ELECTROENCEPHALOGRAM REPORT DATE OF SERVICE: 02/07/2020 PREAMBLE: This is a 24-year-old male with altered mental status. This study is performed to evaluate for any epileptiform activity. EEG FINDINGS: This is a 21-channel routine EEG recording in a patient utilizing 10-20 international system with referential and bipolar montages. The background consists of well developed, well regulated, moderate voltage activity in 8-9 hertz alpha. Background is posterior-dominant and reactive to eye opening and closing. Photic driving response was not seen. Drowsiness was seen with appearance of bilaterally symmetric theta frequency rhythm. Some stage II sleep was seen with appearance of vertex waves. Deeper stages of sleep were not seen. No focal or generalized epileptiform activity was seen. EKG rhythm lead revealed no arrhythmia. IMPRESSION: This is a normal EEG in wakefulness, drowsiness and brief stage II sleep. No epileptiform activity was seen. MMODL / IJN: [id number] /
--- NOTE | 2020-02-07 18:55 | P.CNNES ---
History of Present Illness Consult date: 02/07/20 Requesting physician: Napoleon Kumar Reason for Consult: Mental status change, cephalgia, abnormal brain MRI History of Present Illness: Patient is a 24-year-old male, who was just seen in the mental health unit for cephalalgia an abnormal brain MRI. Patient was transferred to medical floor for further evaluation of his cephalalgia, and mental status change. Patient was actually admitted to the hospital on 01/28/2020, for depressive thoughts after her recent breakup from his girlfriend. He was hearing voices. Patient apparently hit his head on the net on the window, started complaining of headaches which prompted neurology consultation. I had seen him initially on 02/05/2020, 2 days ago. At that time patient was very sleepy, stated had no headache. On follow-up visit yesterday, patient mentioned that his headache was very severe, as if his head will explode. Patient also had an MRI of the brain, which revealed slightly abnormal increase degree of perineural fluid surrounding the optic nerve. Correlate with ophthalmologic exam to exclude papilledema. If there is further clinical concern for pseudotumor cerebri, the lumbar puncture with opening and closing pressure could be considered. Patient is not obese, does not have any stigmata for pseudotumor cerebri. However with some mental status change, new onset headaches, meningitis/encephalitis needs to be ruled out. At present patient states that his headache is 8-9/10, points to the back of the head but then states it is global headache. Patient continues to have very slow mentation, prolonged latency time to answer question. Sometimes needs repeated attempts before he would answer to any question. Denies any numbness tingling focal weakness. Continues to appear drowsy, and slightly groggy. Patient's CBC is perfectly normal, ESR normal. PT/PTT normal. Chem-20 normal, total cholesterol 232, LDL 135, HDL 66 and triglycerides were 57. Hemoglobin A1c 5.2. TSH normal. RPR negative. Urine drug screen positive for marijuana. Review of Systems As per HPI. All other review of systems unremarkable. Denies any chest pain shortness of breath wheezing or cough. Denies any numbness tingling focal weakness. Past Medical History Past Medical History: No Reported History History of Any Multi-Drug Resistant Organisms: None Reported Past Surgical History: No Surgical Hx Reported Past Psychological History: Depression Smoking Status: Never smoker Past Alcohol Use History: Rare Past Drug Use History: None Reported Medications and Allergies Home Medications Medication Instructions Recorded Confirmed Type No Known Home Medications 02/07/20 02/07/20 History Allergies Allergy/AdvReac Type Severity Reaction Status Date / Time No Known Allergies Allergy Verified 02/07/20 15:50 Physical Examination - Vital Signs Vital Signs: Vital Signs Temp Pulse Resp BP Pulse Ox 02/07/20 12:00 98.2 F 74 14 119/73 99 Intake and Output 02/07/20 02/07/20 02/07/20 06:59 14:59 22:59 Intake Total 458 354 Balance 458 354 Intake: Oral 458 354 Other: Weight 77.4 kg On examination patient's mentation is somewhat slow, appears encephalopathic, delayed response, prolonged latency time to answer question. Sometimes require repeated attempts before he answers. Appears slightly groggy. Speech and language functions are normal. Attention span, concentration is decreased. Fund of knowledge also somewhat affected. Patient often gives very inconsistent responses. As an example, I asked for how long he has headaches, states "for long time". I asked if it is for few weeks or months, states "few days". Patient keeps on changing statement about his onset of headache. No aphasia or dysarthria. On cranial nerve exam admission pupils are round and reactive to light, visual riley are full, face is symmetric, tongue protrudes the midline. Palatal elevation and sensation normal. On muscle strength testing there is no pronator drift and the strength is normal in arms and legs distally and proximally. Deep tendon reflexes are 1+ and plantars are withdrawal. Sensory touch is equal. No ataxia for [id number]-pehp testing. Tone and bulk of muscles normal. No carotid bruit or murmur, peripheral pulses present. No edema. Abdomen soft nontender. Chest is clear. Results - Laboratory Findings CBC and BMP: 02/07/20 13:10 Assessment and Plan Assessment: * Altered mental status, with new onset headaches. MRI of brain revealed slightly abnormal increase degree of perineural fluid surrounding the optic nerves. Rule out meningitis/encephalitis. Rule out pseudotumor cerebri. * Major depression with psychosis. Plan: * Patient had an EEG performed today which is normal. * We will check lumbar puncture to check for opening pressure, closing pressure, and spinal fluid will be sent for analysis. * Further management will be based upon lumbar puncture results.
--- NOTE | 2020-02-07 19:24 | P.HPIM ---
History of Present Illness H&P Date: 02/07/20 Chief Complaint: Abnormal behaviors History of presenting complaint: This is a 24-year-old patient of Dr. Kovacs who presented initially to the ER on January 27. Having depressive thoughts. Presented with his grandfather was concerned. His girlfriend since he was age of 16 had broken up with him and cheated on him. But appeared very depressed. Not been sleeping at all and been acting not his normal self. She artery stated contraction of his brain. Also been complaining of psychotic symptoms like hearing voices. On the psychiatry floor he been manifesting several symptoms of catatonia and psychosis. Has been getting Seroquel, Geodon and Ativan etc. Patient also was found to be chronic choke himself and had reported the restraints. At least on 2 occasions he tried to choke himself. He then apparently fallen or tried to bump his head a computed tomography scan of the brain was done that was negative. I was called that time. Neuro checks were done. I ordered a neurology consultation and also an MRI of the brain. 2 days ago. Walked up and down the hallway. At all his meals. When I talked admitted complaining of head buzzing and often will keep quiet. He continued to have hallucinations. I also consulted Dr. Simpson from neurology. He felt patient be better served on the medical floor for workup of his neurological symptoms probably can be transferred back to the psychiatry floor. Patient again today is rather restrictive about giving answers. Shortly after he gets up with 2 bags in the room starts walking around the hallway on the medical floor. No trouble walking. Moving all his limbs. Admitting review of systems: Somewhat limited because of patient not participating in answering questions Past medical history to include: Depression, psychosis Social history: No smoking. Alcohol rarely. Has smoked marijuana in the past. He broke a from his girlfriend about 2 months ago. And prior to that was living in [place]. Physical examination: VITAL SIGNS: 98.2, 74, 14, 119/73, 99% room air GENERAL: [BMI 23.1, sitting up in the bed probably depressed appearing. EYES: Pupils equal. Conjunctiva normal. HEENT: External appearance of nose and ears normal, oral cavity grossly normal. NECK: JVD not raised; masses not palpable. HEART: First and second heart sounds are normal; no edema. LUNGS: Respiratory rate normal; clear to auscultation. ABDOMEN: Soft, nontender, liver spleen not palpable, no masses palpable. PSYCH: Patient of the limited in giving answers. Rather depressed appearingl. NEUROLOGICAL: Cranial nerves grossly intact; no facial asymmetry, power and sensation grossly intact. Patient with this to be walking in the hallway. Moving all his limbs. LYMPHATICS: No lymph nodes palpable in the axilla and neck INVESTIGATIONS, reviewed in the clinical context: White count 6.8 hemoglobin 14.3 platelets 213 potassium 4 creatinine 0.97 LDL 135 Report palate DL antibody nonreactive Computed tomography scan of the brain from February 02-negative MRI of the brain from February 04-no acute infarct midline shift or mass effect. Slightly abnormal increased degree of perineural fluid surrounding the optic. Assessment: -This is a patient had bumped his head and thus psychiatry floor. He has not been forthcoming much of the history since his presentation even before the episode. Patient is being with his walking the floor with no trouble. Eating well.2 years all of psychotic features. His be repeated here to the medical floor patient evaluation by Dr. Simpson to rule out other causes of his present ation. Including pseudotumor cerebri. I would look at the opening pressure. Patient does not have any fever chills Deafness and clinically not suggestive of meningitis. Encephalitis picture also very unlikely. -Advanced psychosis -Recreational marijuana use -Major depression with psychosis -Cephalgia -Abnormal sleep behavior Plan: EEG and lumbar punctures been ordered by Dr. Simpson. Patient can use to sit up. Consultation to psychiatry is also made. Fall precautions. Further psych orders as per Dr. Uribe. In the meantime patient's medications from [address]. psychiatry floor are been resumed. Past Medical History Past Medical History: No Reported History History of Any Multi-Drug Resistant Organisms: None Reported Past Surgical History: No Surgical Hx Reported Past Psychological History: Depression Smoking Status: Never smoker Past Alcohol Use History: Rare Past Drug Use History: None Reported Medications and Allergies Home Medications Medication Instructions Recorded Confirmed Type No Known Home Medications 02/07/20 02/07/20 History Allergies Allergy/AdvReac Type Severity Reaction Status Date / Time No Known Allergies Allergy Verified 02/07/20 15:50 Physical Exam Vitals: Vital Signs Temp Pulse Resp BP Pulse Ox 02/07/20 16:00 98.3 F 81 16 106/70 97 02/07/20 12:00 98.2 F 74 14 119/73 99 Intake and Output 02/07/20 02/07/20 02/07/20 06:59 14:59 22:59 Intake Total 458 354 Balance 458 354 Intake: Oral 458 354 Other: Weight 77.4 kg Results CBC & Chem 7: 02/07/20 13:10 Thrombosis Risk Factor Assmnt - Choose All That Apply Any of the Below Risk Factors Present?: No Other Risk Factors: No Other congenital or acquired thrombophilia - If yes, enter type in comment: No Thrombosis Risk Factor Assessment Level: Very Low Risk
[2020-02-07] MEDS ORDERED: QUEtiapine 400 MG TAB PO SCH (21:00)
[2020-02-08] MEDS: LORazepam 1 MG TAB PO PRN ×2 (08:31→15:41)
--- NOTE | 2020-02-08 08:36 | P.CON ---
Consult Note - . Consult date: 02/08/20 Assessment/Plan:: Clinical Problems: Schizophrenia, rule out major depressive disorder with psychosis, rule out schizoaffective disorder, repeated self injury (head banging choking, history of headaches with abnormal MRI of the brain Interim history: He is a 24-year-old single male admitted to psychiatry service on 01/29/2020 with confusion, paranoia and impairment in functioning. He was unable to provide a coherent history. He did not u nderstand reason for this hospitalization other than he came to the hospital with the behest of his grandfather. His grandfather provided the information that he became unwell after a breakup of long-term relationship. He began "drinking" and missing work. About 2 months prior to admission he took his grandfather's truck to pickle processor his trailer in [place] and moved to [place]. He did not return and was found near [place] "passed out" the truck with a loaded pistol. He told his grandfather that he did not have thoughts of harming himself but made such statements as "what is it worth living?". His grandfather reported that he was not sleeping and has made paranoid statements but having carved cameras in the house or people watching him. We admitted him psychiatric unit and initially treated him as a presumptive major depressive disorder with psychosis. He showed marked psychomotor slowing to the point where he met criteria for catatonia. He was paranoid, impulsive, confused and experiencing auditory hallucinations. We initially treated him with combination Lexapro and Seroquel. Due to the severity of his disorganization, catatonia, hallucinations we also started Haldol 2.5 mg 4 times a day. With this combination he showed less psychomotor slowing but began to self-harm. As a result of self-harm is placed on one-to-one. He received multiple IV administrations of a Haldol, Ativan and Geodon due to his agitation. A CT scan of the brain following a self induce head injury was negative. We consulted medicine after repeated episodes of head-banging. In the process an MRI showed an abnormal increased degree of perinrural fluids surrounding the optic nerve. After consultation with neurology service the transferred from medicine service for further neurological evaluation of altered mental status. Today, I reviewed the medical record and interviewed him. He was laying completely in bed with the one-to-one and attendance. His answers to questions were delayed. He appeared to understand the reason for the transfer. He feels paranoid and when I asked about auditory hallucinations he shook his head to the affirmative. He would not talk about the experience. He appeared to understand the reason for his transfer from medicine service and the planned medical intervention (spinal tap). Mental status exam: He presented as a casually groomed young male who is lying comfortably in bed. He made infrequent eye contact. He appeared to be internally preoccupied. He showed marked psychomotor slowing with long delays in response to questions his speech was barely audible and had marked slowing. His affect was guarded and suspicious. He did not voice suicidal ideation or wishes. He did not express clear paranoid ideation or delusional beliefs. His thinking was concrete but his associations appeared goal directed. Assessment: He catatonia is smokes mostly resolved but he continues to have marked psychomotor slowing, paranoia and auditory hallucinations. Plan: Continue one-to-one. Continue Haldol 2.5 mg 4 times a day and Seroquel 400 mg at bedtime. Psychiatry will continue to follow.
[2020-02-08] MEDS ORDERED: ESCITALOPRAM 10 MG TAB PO SCH (09:00)
--- NOTE | 2020-02-08 09:37 | FL ---
EXAMINATION TYPE: FL guided lumbar puncture LP DATE OF EXAM: 02/08/2020 COMPARISON: MRI brain dated 02/05/2020 Anesthesia: 1% lidocaine locally. Fluoro time used: 1 minute and 31 seconds Estimated Blood Loss: Minimal Final verification: Final verification was performed in the presence of the cytogenetic technologist, jerry fonseca, physician equity sales assistant and attending physician. Preprocedural timeout was performed. Procedure: The procedure was explained in full detail to the patient including risks and benefits from the proce dure. Informed, written and verbal consent was obtained from the patient prior to the procedure. All of the patient's questions and concerns were answered. The patient was placed prone on the fluoroscopy table. The skin over the L4-5 interspace was prepped and draped in the usual sterile fashion. Local anesthesia was utilized using 1% Lidocaine subcutaneou sly. Access to the subarachnoid space was obtained with a 20-gauge spinal needle at the L4-L5 level. Over no spinal fluid was able to be removed. The patient asked to stop the procedure. When questioned a second time the patient again wish to stop the procedure. IMPRESSION: Unsuccessful fluoroscopically guided lumbar puncture at the L4-L5 level as described above. Exam is t erminated as the patient did not wish to continue the procedure.
[2020-02-08] MEDS: HALOPERIDOL 5 MG TAB PO SCH ×3 (09:49→17:34)
[2020-02-08 11:02] VITALS: RESP 16
--- NOTE | 2020-02-08 13:17 | P.PN ---
Subjective Progress Note Date: 02/08/20 Patient states he has no headache. I asked him headache on a scale of 1-10, patient states he has no headache. This was witnessed by nursing assistant/sitter Beth. Lumbar puncture was attempted by Dr. Mima Amin, and was unsuccessful. Patient subsequently declined further attempts. Objective - Vital Signs Vital signs: Vital Signs Temp 98.1 F 02/08/20 08:00 Pulse 82 02/08/20 10:50 Resp 16 02/08/20 10:50 BP 119/67 02/08/20 10:50 Pulse Ox 100 02/08/20 10:50 Intake & Output 02/07/20 02/08/20 02/08/20 18:59 06:59 18:59 Intake Total 812 1260 118 Balance 812 1260 118 Weight 77.4 kg 77.9 kg Intake: Oral 812 1260 118 Other: # Voids 1 - Exam Patient is slightly more cooperative. Slightly more talking, less psychotic. Still with delayed response and flat affect. Examination nonfocal. - Labs CBC & Chem 7: 02/07/20 13:10 Assessment and Plan Assessment: * Altered mental status, with new onset headaches. MRI of brain revealed slightly abnormal increase degree of perineural fluid surrounding the optic nerves. Rule out meningitis/encephalitis. Rule out pseudotumor cerebri. * Major depression with psychosis. Plan: * Patient had an EEG performed today which is normal. * Lumbar puncture was attempted under fluoroscopic guidance, but was unsuccessful. Patient subsequently declined further attempts. * At present patient has no headache. His altered mental status is likely from severe psychosis. Spoke to Dr. Uribe, psychiatrist, who feels mental status change is from severe psychosis. At this point, we will hold off on lumbar puncture. Patient will be sent back to psychiatric unit for treatment of depression and psychosis. * Suggest ophthalmological examination, to evaluate for papilledema. If positive, then probably would need a lumbar puncture. * Discussed with psychiatrist Dr. Uribe, and Dr. Kumar, and agree with the management. * Please call neurology if there is any further concerns. Neurology will sign off.
[2020-02-08 16:10] VITALS: BP 120/66; PULSE 78; TEMP 97.9
--- NOTE | 2020-02-09 20:59 | P.DS ---
Providers Date of admission: 02/07/20 11:06 Expected date of discharge: 02/08/20 Attending physician: Napoleon Kumar Consults: 02/07/20 11:51 Consult Physician Routine Consulting Provider: Ana Laura Snow Consult Reason/Comments: MS changes Do you want consulting provider notified?: Yes Placement Type Exists?: Yes 02/07/20 11:52 Consult Physician Routine Consulting Provider: Kael Uribe Consult Reason/Comments: psychosis Do you want consulting provider notified?: Yes Placement Type Exists?: Yes Primary care physician: [facility] Course: Chief Complaint: Abnormal behaviors History of presenting complaint: This is a 24-year-old patient of Dr. Kovasc who presented initially to the ER on January 27. Having depressive thoughts. Presented with his grandfather was concerned. His girlfriend since he was age of 16 had broken up with him and cheated on him. But appeared very depressed. Not been sleeping at all and been acting not his normal self. She artery stated contraction of his brain. Also been complaining of psychotic symptoms like hearing voices. On the psychiatry floor he been manifesting several symptoms of catatonia and psychosis. Has been getting Seroquel, Geodon and Ativan etc. Patient also was found to be chronic choke himself and had reported the restraints. At least on 2 occasions he tried to choke himself. He then apparently fallen or tried to bump his head a computed tomography scan of the brain was done that was negative. I was called that time. Neuro checks were done. I ordered a neurology consultation and also an MRI of the brain. 2 days ago. Walked up and down the hallway. At all his meals. When I talked admitted complaining of head buzzing and often will keep quiet. He continued to have hallucinations. I also consulted Dr. Simpson from neurology. He felt patient be better served on the medical floor for workup of his neurological symptoms probably can be transferred back to the psychiatry floor. Patient again today is rather restrictive about giving answers. Shortly after he gets up with 2 bags in the room starts walking around the hallway on the medical floor. No trouble walking. Moving all his limbs. Patient was taken down for a lumbar puncture. Unsuccessful. Opening pressure" can be done. I discussed with the patient and Dr. Simpson discussed with the pat agustin. But he did not want to have another repeat lumbar puncture done. There was discussed with Dr. Simpson and Dr. Uribe. Patient not complaining of any further headaches eating well. Walking. It was felt patient would be best so by getting his psychosis better and having and then consent possibly a lumbar puncture. Patient be transferred back to the psychiatry unit. Also discussed with Regine the nurse started 3 W. with the patient coming back. I also filled out a petition. Patient had early declining to go down to the psychiatry floor. Discussion and discharge planning more than 35 minutes Consultation: Dr. Simpson-neurology Dr. Uribe-psychiatry. Physical examination: VITAL SIGNS: 98.3, 90, 16, 112/65, 98% on room air GENERAL: Propped her in bed, depressed appearing EYES: Pupils equal. Conjunctiva normal. HEENT: External appearance of nose and ears normal, oral cavity grossly normal. NECK: JVD not raised; masses not palpable. HEART: First and second heart sounds are normal; no edema. LUNGS: Respiratory rate normal; clear to auscultation. ABDOMEN: Soft, nontender, liver spleen not palpable, no masses palpable. PSYCH: Patient of the limited in giving answers. Rather depressed appearingl. NEUROLOGICAL: Cranial nerves grossly intact; no facial asymmetry, power and sensation grossly intact. Patient with this to be walking in the hallway. Moving all his limbs. INVESTIGATIONS, reviewed in the clinical context: Lumbar puncture-unsuccessful Previous testing White count 6.8 hemoglobin 14.3 platelets 213 potassium 4 creatinine 0.97 LDL 135 Treponema P. antibody nonreactive Computed tomography scan of the brain from February 02-negative MRI of the brain from February 04-no acute infarct midline shift or mass effect. Slightly abnormal increased degree of perineural fluid surrounding the optic. Assessment: -Abnormal MRI. Patient is declining lumbar puncture to be repeated. -Advanced psychosis -Recreational marijuana use -Major depression with psychosis -Cephalgia-corrected -Abnormal sleep behavior Plan: Return to 3 [address]. inpatient psychiatry floor. Accepting physician Dr. Uribe. Patient Condition at Discharge: Stable Plan - Discharge Summary New Discharge Prescriptions: New LORazepam [Ativan] 1 mg PO TID PRN tab PRN Reason: Agitation Haloperidol [Haldol] 2.5 mg PO QID tab Escitalopram [Lexapro] 10 mg PO DAILY tab QUEtiapine [SEROquel] 400 mg PO HS tab Acetaminophen Tab [Tylenol] 650 mg PO Q6HR PRN tab PRN Reason: Mild Pain Or Fever > 100.5 Discharge Medication List Acetaminophen Tab [Tylenol] 650 mg PO Q6HR PRN tab 02/08/20 [Rx] Escitalopram [Lexapro] 10 mg PO DAILY tab 02/08/20 [Rx] Haloperidol [Haldol] 2.5 mg PO QID tab 02/08/20 [Rx] LORazepam [Ativan] 1 mg PO TID PRN tab 02/08/20 [Rx] QUEtiapine [SEROquel] 400 mg PO HS tab 02/08/20 [Rx] Follow up Appointment(s)/Referral(s): Kael Uribe MD [STAFF PHYSICIAN] - 1-2 Days Discharge Disposition: TRANSFER TO PSYCH HOSP/UNIT
== END 2020-02-08 18:45 | DRG 92 ==
LOC: 3SCARD 11:06
PROVIDERS: ADMIT Hospitalist; ATTEND Hospitalist
PROC: 00JU3ZZ Inspection of Spinal Canal, Percutaneous Approach (ICD-10-PCS; principal; 2020-02-07)
DX: R93.0 Abnormal findings on diagnostic imaging of skull and head, not elsewhere classified (principal); F32.3 Major depressive disorder, single episode, severe with psychotic features
CPT/HCPCS: 62328; 85049; 85610; 95816

== ENCOUNTER 2020-02-08 18:53 | Inpatient (IN) | payer OTHER ==
[2020-02-08] MEDS ORDERED: ZIPRASIDONE 20 MG VIAL IM PRN (18:58)
[2020-02-08] MEDS ORDERED: MAG HYDROX/AL HYDROX/SIMETH 30 ML CUP PO PRN (18:58)
[2020-02-08] MEDS ORDERED: ACETAMINOPHEN TAB 325 MG TAB PO PRN (19:02)
[2020-02-08] MEDS ORDERED: LORazepam 2 MG/ML INJ IM PRN (19:04)
[2020-02-08] MEDS: HALOPERIDOL 5 MG TAB PO SCH (21:00)
[2020-02-08] MEDS ORDERED: QUEtiapine 400 MG TAB PO SCH (21:00)
[2020-02-09] MEDS: HALOPERIDOL 5 MG TAB PO SCH (08:18)
[2020-02-09] MEDS: ESCITALOPRAM 10 MG TAB PO SCH (08:18)
--- NOTE | 2020-02-09 13:05 | P.PN ---
Progress Note - Text Progress Note Date: 02/09/20 Came specifically to see patient for a follow-up on his headaches. Patient now back in mental health unit. Patient overall has much improved as compared to the last few visits. Patient able to answer more appropriately, speak clearly and with mental clarity. Patient states that his headaches have improved, now occurring off and on. He believes it is 30% better. Patient states that the headache started since he came to the hospital, had some headaches before but wasn't as bad. Patient is fully oriented, knows it is February 2020 that he is in [facility] in [facility]. Patient appears to be cognitively intact. I asked patient the telephone number of his mother for me to talk to her afterwards. Patient gave permission. Patient was able to tell the telephone number without any hesitancy. His memory appears fairly normal. 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 He also tells me that he started drinking heavily for a month, but then after he stopped drinking, he could not sleep. Patient believes that the medications he is receiving is making him tired and drowsy, not able to think and slowing him down. I obtained an ophthalmoscope from the ER department. Tried to look into his eyes. Somehow not able to have a very good look to check for papilledema. I tried multiple times. No definitive swelling, but cannot rule out entirely. I informed patient that as I have time today, I'll be able to perform lumbar puncture here, if he agrees. At present patient with mental clarity, does not want to have it done. He states that if he feels the headaches are not better, or gets worse, then he will request for it. I called patient's mother at the number he provided [phone]. Left message on voicemail with my return cell phone number. Suggest ophthalmology consultation to rule out papilledema. Please call neurology if you have any further concerns. Neurology will sign off. Also spoke to Dr. Kumar.
[2020-02-09] MEDS: MAGNESIUM HYDROXIDE 2,400 MG/10 ML CUP PO PRN (16:21)
--- NOTE | 2020-02-09 17:19 | P.HP ---
Psychiatric H&P - . H&P Date: 02/09/20 History & Physical: IDENTIFYING DATA: He is a 24-year-old single male transferred back to psychiatry from medicine service. HISTORY OF PRESENT ILLNESS: He initially presented to psychiatric unit on 01/29/2020 with a history of a marked change in his behavior and functioning. He was initially unable to provide a coherent history and did not understand the reason for this hospitalization. His grandfather provided the admission history. He apparently became unwell about 2 months prior to admission following a breakup of a long-term relationship. He had suicidal thoughts, confusion, paranoia and insomnia. He expressed suicidal thoughts to his grandfather as well as expressed a belief that there were cameras in his house and that people were watching him. He was catatonic when he initially arrived on the psychiatric unit. He was co nfused and appeared to be responding to internal stimuli. We treated him initially with Seroquel titrating the dose to 400 mg at bedtime and Lexapro 10 mg daily. He received multiple IM injections of Ativan and Geodon. When the catatonia resolved he began self harming. We placed him on one-to-one because he was choking himself. The self choking required 1 episode of seclusion and restraint. He then began head banging. The computed tomography scan was negative. The health care / medical job titles was concerned about the patient's complaint of headache and the apparent fluctuation of his mental status. MRI was suggestive of increased intracranial pressure. The neurologist recommended a spinal tap with measurement opening and closing pressure. We transferred him to medicine service on 02/07/2020. EEG was normal. The interventional radiologist attempted to the spinal tap under fluoroscopy on 02/08/2020. The lumbar puncture was unsuccessful. The patient insisted to stop the procedure before completion. The patient would not consent to a another lumbar puncture under anesthesia. We decided to transfer him back to psychiatry service for continued treatment of his psychosis and continue discuss about the need for repeat lumbar puncture to evaluate increase CSF pressure. He complained of feeling overly sedated and requested a decrease in his medications. He again was unable to explain the reason for this hospitalization. We talked about his behavior when he first arrived on the unit including the catatonia, choking and head banging. He alleged that he was aware of hurting himself. He stated that "at that time it was the only way that I thought I could get out of here." I asked him if he still believes that since he replied "no. I was wrong." PAST PSYCHIATRIC HISTORY: He denied a history of psychiatric hospitalizations. Denies he denied past history of mental health treatment PAST MEDICAL HISTORY: Denied ALLERGIES: NO KNOWN DRUG ALLERGIES SUBSTANCE USE HISTORY: He minimizes alcohol use and would not talk about the amount and frequency. He mentioned that he smoked marijuana in the past. His UDS was positive for marijuana and his breath alcohol level in the ED was negative. FAMILY PSYCHIATRIC/SUBSTANCE USE HISTORY: He is unaware of family history of psychiatric illness or substance use problems. LEGAL HISTORY: He denied SOCIAL HISTORY: He was born and raised in [place] by his mother and extended family. His parents when he was young. He has a younger brother and sister. He graduated from high school. He is not in the . He was single and has no children. He is working and living in [place] up until 2 months prior to admission. He broke up 2 months ago from a girl he began dating when he was 16 years old. MENTAL STATUS EXAM: He presented as a casually groomed 24 old male who was pleasant on approach. He did not make eye contact but appeared to attend to the interview. He had no prominent physical abnormalities. He had a flat facial expression. He was alert and oriented to person and place. He did not know the month or the date. He showed marked psychomotor retardation but no abnormal movements. His speech was nonspontaneous slow with decreased volume. He had passed pretty of speech and poverty of content. His affect was flat and not reactive. He denied suicidal ideation or wishes she denied homicidal ideation. He feels hopeless and helpless regarding this hospitalization. He did not express ideas reference, paranoid ideation or delusions. His thinking was concrete but his associations were logical and goal directed. He denied hallucinations but at times appeared to be responding to internal stimuli. STRENGTHS: Supportive family, engagement with mental health services, compliance with treatment, early response to treatment. WEAKNESSES: Lack of understanding of need for treatment including his refusal to proceed with these spinal tap IMPRESSION: Is a [id number] male who presented to the unit with marked psychomotor retardation, catatonia, confusion, paranoia and auditory hallucinations. He is shown gradual response to treatment as much more engaging and communicative. The neurologist in hospice or concern that his psychiatric symptoms may be related to increased intracranial pressure. I attempted unsuccessfully to perform a measurement of his CSF pressure. We will continue with psychiatric treatment and continue with discussion of the need for the lumbar puncture and offer the option of having a lumbar puncture under anesthesia. PRINCIPLE DIAGNOSIS: Schizophrenia, rule out psychotic disorder secondary to an unspecified neurological condition, rule out schizoaffective disorder, rule out major depressive disorder with psychotic features, without psychotic, abnormal MRI suggestive of increased intracranial pressure. RECOMMENDATION: Admit to psychiatric unit. Safety precautions. There is no reason continue one-to-one. Decrease Seroquel to 200 mg at bedtime and Haldol to 2 mg twice a day. Continue discussions with the need for the lumbar puncture. Encourage participation in therapeutic groups and activities. Evaluate clinical status response to treatment daily basis. Allergies Allergy/AdvReac Type Severity Reaction Status Date / Time No Known Allergies Allergy Verified 02/07/20 15:50 Vital Signs Temp 98 F 02/09/20 06:49 Pulse 65 02/09/20 06:49 Resp 16 02/09/20 06:49 BP 118/66 02/09/20 06:49 Pulse Ox 97 02/08/20 19:45 Intake & Output 02/08/20 02/09/20 02/09/20 18:59 06:59 18:59 Weight 77.9 kg 76.657 kg 02/09/20 09:43
[2020-02-09] MEDS: ACETAMINOPHEN TAB 325 MG TAB PO PRN (19:23)
[2020-02-09] MEDS: LORazepam 1 MG TAB PO PRN (19:23)
[2020-02-09] MEDS: HALOPERIDOL 2 MG TAB PO SCH (19:23)
[2020-02-09] MEDS: QUEtiapine 200 MG TAB PO SCH (19:23)
--- NOTE | 2020-02-09 20:16 | P.CONS ---
History of Present Illness - Reason for Consult Consult date: 02/09/20 Medical management Requesting physician: Kael Uribe - Chief Complaint Psychotic - History of Present Illness History of presenting complaint: This is a 24-year-old patient of Dr. Kovacs who presented initially to the ER on January 27. Having depressive thoughts. Presented with his grandfather was concerned. His girlfriend since he was age of 16 had broken up with him and cheated on him. But appeared very depressed. Not been sleeping at all and been acting not his normal self. She artery stated contraction of his brain. Also been complaining of psychotic symptoms like hearing voices. On the psychiatry floor he been manifesting several symptoms of catatonia and psychosis. Has been getting Seroquel, Geodon and Ativan etc. Patient also was found to be chronic choke himself and had reported the restraints. At least on 2 occasions he tried to choke himself. He then apparently fallen or tried to bump his head a computed tomography scan of the brain was done that was negative. I was called that time. Neuro checks were done. I ordered a neurology consultation and also an MRI of the brain. 2 days ago. Walked up and down the hallway. Eating all h is meals. When I talked admitted complaining of head buzzing and often will keep quiet. He continued to have hallucinations. I also consulted Dr. Simpson from neurology. He felt patient be better served on the medical floor for workup of his neurological symptoms probably can be transferred back to the psychiatry floor. Subsequently the patient was transferred to the medical floor. Lumbar puncture was ordered. Intervention radiology to the temporal opening pressure could not be obtained. It was discussed with Dr. Simpson and Dr. Uribe the psychiatrist was felt that patient will be better served by treating his psychosis first. Patient is refusing to get a repeat LP done. Patient to the medical floor also walked in the hallway. Did not complaining of any headaches. Review of systems: GEN.: [None] EYES: [None] HEENT: [No headache] NECK: [None] RESPIRATORY: [None] CARDIOVASCULAR: [None] GASTROINTESTINAL: [None] GENITOURINARY: [None] MUSCULOSKELETAL: [None] LYMPHATICS: [None] HEMATOLOGICAL: [None] PSYCHIATRY: [Depressed] NEUROLOGICAL: [No trouble walking] Past medical history to include: Depression, psychosis Social history: No smoking. Alcohol rarely. Has smoked marijuana in the past. He broke a from his girlfriend about 2 months ago. And prior to that was living in [place]. Physical examination: VITAL SIGNS: 98.3, 65, 18, 118/66, 97% on room air GENERAL: Sitting at the edge of the bed, depressed. EYES: Pupils equal. Conjunctiva normal. HEENT: External appearance of nose and ears normal, oral cavity grossly normal. NECK: JVD not raised; masses not palpable. HEART: First and second heart sounds are normal; no edema. LUNGS: Respiratory rate normal; clear to auscultation. ABDOMEN: Soft, nontender, liver spleen not palpable, no masses palpable. PSYCH: Answers questions occasionally. Depressed NEUROLOGICAL: Cranial nerves grossly intact; no facial asymmetry, power and sensation grossly intact. Patient bit his to be walking in the [place] by me today no trouble walking. LYMPHATICS: No lymph nodes palpable in the axilla and neck INVESTIGATIONS, reviewed in the clinical context: White count 6.8 hemoglobin 14.3 platelets 213 potassium 4 creatinine 0.97 LDL 135 Troponin P. antibody nonreactive Computed tomography scan of the brain from February 02-negative MRI of the brain from February 04-no acute infarct midline shift or mass effect. Slightly abnormal increased degree of perineural fluid surrounding the optic. Assessment: -Abnormal MRI. Clinically patient is has no focal symptoms. Walking normally in the hallway. Currently denies any headaches. No change in vision. Patient has declined a repeat lumbar puncture. Being followed by neurology Dr. Simpson.. -Advanced psychosis -Recreational marijuana use -Major depression with psychosis -Cephalgia -Abnormal sleep behavior Plan: Continue current medication treatment plan. Order consultation for neurology for papilledema as per Dr. Simpson. Thank you Dr. Urieb Past Medical History Past Medical History: No Reported History History of Any Multi-Drug Resistant Organisms: None Reported Past Surgical History: No Surgical Hx Reported Past Psychological History: Depression Smoking Status: Never smoker Past Alcohol Use History: Rare Past Drug Use History: None Reported Medications and Allergies Home Medications Medication Instructions Recorded Confirmed Type Acetaminophen Tab [Tylenol] 650 mg PO Q6HR PRN tab 02/08/20 Rx Escitalopram [Lexapro] 10 mg PO DAILY tab 02/08/20 Rx Haloperidol [Haldol] 2.5 mg PO QID tab 02/08/20 Rx LORazepam [Ativan] 1 mg PO TID PRN tab 02/08/20 Rx QUEtiapine [SEROquel] 400 mg PO HS tab 02/08/20 Rx Allergies Allergy/AdvReac Type Severity Reaction Status Date / Time No Known Allergies Allergy Verified 02/07/20 15:50 Physical Exam Vitals: Vital Signs Temp Pulse Resp BP Pulse Ox 02/09/20 06:49 98 F 65 16 118/66 02/08/20 19:45 97.7 F 12 L 16 123/71 97 Intake and Output 02/08/20 02/09/20 02/09/20 22:59 06:59 14:59 Other: Weight 76.657 kg
[2020-02-10] MEDS: ESCITALOPRAM 10 MG TAB PO SCH (09:09)
[2020-02-10] MEDS: HALOPERIDOL 2 MG TAB PO SCH ×2 (09:09→22:34)
[2020-02-10] MEDS: ACETAMINOPHEN TAB 325 MG TAB PO PRN (09:10)
--- NOTE | 2020-02-10 10:17 | P.PN ---
Progress Note - Text Progress Note Date: 02/10/20 Clinical Problems: Schizophrenia, rule out psychotic disorder secondary to an unspecified neurological condition, rule out schizoaffective disorder, rule out major depressive disorder with psychotic features, without psychotic, abnormal MRI suggestive of increased intracranial pressure. Interim history: I reviewed the medical record and interviewed the patient. He denied concerns other than wanting to leave the hospital. He provided little information. In response to questions about auditory hallucinations he replied to the affirmative but would not discuss the experience. He denied having thoughts of or suicide. Medicine consult appreciated. He slept 7 hours last night and attended one therapeutic groups. Mental status exam: He presented today casually groomed with marked psychomotor slowing. He made intermittent eye contact but appeared to attend to interview he had a flat facial expression. He showed psychomotor retardation but no abnormal movements. Her speech was not spontaneous and had decreased rate, rhythm and volume. He had partly his speech and poverty of content. His affect was flat. He denied experiencing suicidal ideation, wishes or homicidal ideation. I did not understand his response to questions about ideas reference or other psychotic symptoms. He appears paranoid and guarded. His sticking was concrete but his associations appeared coherent. He acknowledged auditory hallucinations but did not appear to be responding to internal stimuli. Assessment: Overall, he appears less psychotic, diffuse and psychomotor delayed to admission. He continues to have concerns about increase in intracranial pressure. Plan: Continue inpatient treatment. Sick precautions. Continue Haldol 2 mg twice a day and Seroquel 200 mg at bedtime. Continue Lexapro 10 mg daily. We will continue discuss with him a repeat LP under anesthesia. Encourage participation in therapeutic groups and activities. Evaluate clinical status response to treatment daily basis.
[2020-02-10] MEDS: MAGNESIUM HYDROXIDE 2,400 MG/10 ML CUP PO PRN (14:02)
[2020-02-10] MEDS ORDERED: BENZTROPINE 2 MG/2 ML AMP IM STA (15:54)
[2020-02-10] MEDS ORDERED: BENZTROPINE MESYLATE 1 MG TAB PO SCH (21:00)
[2020-02-10] MEDS: QUEtiapine 200 MG TAB PO SCH (22:35)
[2020-02-11] MEDS: MAGNESIUM HYDROXIDE 2,400 MG/10 ML CUP PO PRN (07:26)
[2020-02-11] MEDS: POLYETHYLENE GLYCOL 3350 17 GM POWD.PACK PO SCH (09:32)
[2020-02-11] MEDS: ACETAMINOPHEN TAB 325 MG TAB PO PRN (09:32)
[2020-02-11] MEDS: ESCITALOPRAM 10 MG TAB PO SCH (09:32)
--- NOTE | 2020-02-11 12:10 | P.PN ---
Progress Note - Text Progress Note Date: 02/11/20 Clinical Problems: Schizophrenia, rule out psychotic disorder secondary to an unspecified neurological condition, rule out schizoaffective disorder, rule out major depressive disorder with psychotic features, without psychotic, abnormal MRI suggestive of increased intracranial pressure. Interim history: I reviewed the medical record and interviewed the patient. He complained about his current medications requested discussed his medications. The nurse call me late yesterday afternoon because the patient complained that he could not move his neck and he had difficulty speaking. These symptoms resolved with 1 mg of Cogentin IM. I ordered 1 mg Cogentin by mouth twice a day with the 2 mg dose of Haldol twice a day. This morning he complained of constipation. We talked about treatment options and agreed to discontinue both the Seroquel and Haldol and begin a trial of Abilify because she experiencing EPS with the Haldol and marked sedation with an antipsychotic dose of Seroquel. He was more engaged and expressive prior encounters. He admitted to "voices". He described a recurrent current voice that is persistent but less distressing than on admission. Neurology consult appreciated. He slept 6 hours last night and attended one therapeutic groups. Mental status exam: He presented today casually groomed with marked psychomotor slowing. He made intermittent eye contact but appeared to attend to interview he had a flat facial expression. He showed psychomotor retardation but no abnormal movements. Her speech was not spontaneous and had decreased rate, rhythm and volume. He had partly his speech and poverty of content. His affect was flat. He denied experiencing suicidal ideation, wishes or homicidal ideation. I did not understand his response to questions about ideas reference or other psychotic symptoms. He appears paranoid and guarded. His thinking was concrete but his associations appeared coherent. He acknowledged auditory hallucinations but did not appear to be responding to internal stimuli. Assessment: Overall, he appears less psychotic, diffuse and psychomotor delayed to admission. He continues to have concerns about increase in intracranial pressure. Plan: Continue inpatient treatment. Safety precautions. Taper and discontinue Seroquel and discontinue Haldol and Cogentin. Begin Abilify 15 mg at bedtime. Continue Lexapro 10 mg daily. We will continue discuss with him a repeat LP under anesthesia. Encourage participation in therapeutic groups and activities. Evaluate clinical status response to treatment daily basis.
[2020-02-11] MEDS: LORazepam 1 MG TAB PO PRN (14:40)
[2020-02-11] MEDS: ARIPiprazole 15 MG TAB PO SCH (21:58)
[2020-02-11] MEDS: QUEtiapine 100 MG TAB PO SCH (21:58)
[2020-02-12] MEDS: ESCITALOPRAM 10 MG TAB PO SCH (09:09)
[2020-02-12] MEDS: POLYETHYLENE GLYCOL 3350 17 GM POWD.PACK PO SCH (09:10)
[2020-02-12] MEDS: LORazepam 1 MG TAB PO PRN (13:56)
--- NOTE | 2020-02-12 14:29 | P.PN ---
Progress Note - Text Progress Note Date: 02/12/20 Clinical Problems: Schizophrenia, rule out psychotic disorder secondary to an unspecified neurological condition, rule out schizoaffective disorder, rule out major depressive disorder with psychotic features, without psychotic, abnormal MRI suggestive of increased intracranial pressure. Interim history: I reviewed the medical record and interviewed the patient. He expressed an interest in discharge stating that he is ready to "go home" He denied experiencing auditory hallucinations. Nursing staff reported that he came to the nursing station yesterday and asked them if he had a "chip in my brain." Reports feeling less sedated with the decreased dose of Seroquel and denied side effects initial dose of Abilify. He again would not consent to referral for a repeat lumbar puncture. Mental status exam: He presented today casually groomed with psychomotor slowing. He made eye contact and appeared to attend to interview. He had a flat facial expression. He showed psychomotor retardation but no abnormal movements. Her speech was spontaneous and had decreased rate, rhythm and volume. He had poverty of speech and poverty of content. His affect was flat. He denied experiencing suicidal ideation, wishes or homicidal ideation. He did not express clear ideas reference, paranoid ideation or delusional thoughts or beliefs. He appears paranoid and guarded. His thinking was concrete and stilted. He denied auditory hallucinations but at times appeared to be responding to internal stimuli. Assessment: Overall, he appears less psychotic, confused and psychomotor delayed than on admission. Plan: Continue inpatient treatment. Safety precautions. Continue Abilify 15 mg at bedtime. Continue Lexapro 10 mg daily. We will continue discuss with him a repeat LP under anesthesia. Encourage participation in therapeutic groups and activities. Evaluate clinical status response to treatment daily basis.
[2020-02-12] MEDS: ARIPiprazole 15 MG TAB PO SCH (20:12)
[2020-02-12] MEDS: QUEtiapine 100 MG TAB PO SCH (20:12)
[2020-02-13] MEDS: POLYETHYLENE GLYCOL 3350 17 GM POWD.PACK PO SCH (10:31)
[2020-02-13] MEDS: ESCITALOPRAM 10 MG TAB PO SCH (10:32)
--- NOTE | 2020-02-13 13:09 | P.PN ---
Progress Note - Text Progress Note Date: 02/13/20 Clinical Problems: Schizophrenia, rule out psychotic disorder secondary to an unspecified neurological condition, rule out schizoaffective disorder, rule out major depressive disorder with psychotic features, without psychotic, abnormal MRI suggestive of increased intracranial pressure. Interim history: I reviewed the medical record and interviewed the patient. He denied problems or concerns other than wishing to "go home". He denied experiencing auditory hallucinations, thought insertion, thought broadcasting or thought control. He denies that he feels as though there is a "chip" in his brain or that he is receiving messages" from the government". He again would not consent to referral for a repeat lumbar puncture. Mental status exam: He presented today casually groomed with psychomotor slowing. He made eye contact and appeared to attend to interview. He had a blunted facial expression. He showed psychomotor retardation but no abnormal movements. Her speech was spontaneous and had decreased rate, rhythm and volume. He had poverty of speech and poverty of content. His affect was blunted but reactive. He denied experiencing suicidal ideation, wishes or homicidal ideation. He did not express clear ideas reference, paranoid ideation or delusional thoughts or beliefs. He appears paranoid and guarded. His thinking was concrete and stilted. He denied auditory hallucinations but at times appeared to be responding to internal stimuli. Assessment: Overall, he appears less psychotic, confused and psychomotor delayed than on admission. Plan: Plan for discharge on 02/14/2020. Safety precautions. Continue Abilify 15 mg at bedtime. Continue Lexapro 10 mg daily. We will continue discuss with him a repeat LP under anesthesia. Encourage participation in therapeutic groups and activities. Evaluate clinical status response to treatment daily basis.
[2020-02-13] MEDS: LORazepam 0.5 MG TAB PO PRN (16:02)
[2020-02-13] MEDS: ARIPiprazole 15 MG TAB PO SCH (18:49)
[2020-02-13] MEDS: QUEtiapine 100 MG TAB PO SCH (18:49)
[2020-02-14] MEDS: POLYETHYLENE GLYCOL 3350 17 GM POWD.PACK PO SCH (08:26)
[2020-02-14] MEDS: ESCITALOPRAM 10 MG TAB PO SCH (08:26)
[2020-02-14] MEDS: ACETAMINOPHEN TAB 325 MG TAB PO PRN (12:52)
--- NOTE | 2020-02-14 13:36 | P.PN ---
Progress Note - Text Progress Note Date: 02/14/20 Clinical Problems: Schizophrenia, rule out psychotic disorder secondary to an unspecified neurological condition, rule out schizoaffective disorder, rule out major depressive disorder with psychotic features, without psychotic, abnormal MRI suggestive of increased intracranial pressure. Interim history: I reviewed the medical record and interviewed the patient. He denied problems or concerns other than wishing to "go home". He denied experiencing auditory hallucinations, thought insertion, thought broadcasting or thought control. He denies that he feels as though there is a "chip" in his brain or that he is receiving messages" from the government". He again would not consent to referral for a repeat lumbar puncture. I asked about aftercare plans. He replied that he is moving to [place] to live with his dad. He alleged that he doesn't plan to return to his grandfather's house but we'll leave for [place] immediately after he is discharged from the hospital. He has not spoken with his family about this plan, does not have a plane ticket, was unable to describe how he would buy a plane ticket, does not have a way to get to the airport and could not explain how he would problem solve transportation to the airport. In the miss the succession she made the comment "I just want to get my bill and leave." Mental status exam: He presented today casually groomed with psychomotor slowing. He made eye contact and appeared to attend to interview. He had a blunted facial expression. He showed psychomotor retardation but no abnormal movements. Her speech was spontaneous and had decreased rate, rhythm and volume. His affect was blunted but reactive. He denied experiencing suicidal ideation, wishes or homicidal ideation. He did not express clear ideas reference, paranoid ideation or delusional thoughts or beliefs. He appears paranoid and guarded. His thinking was concrete. He denied auditory hallucinations but at times appeared to be responding to internal stimuli. Assessment: Overall, he appears less psychotic, confused and psychomotor delayed than on admission. He has impairment in executive functioning. Plan: Continue inpatient. Safety precautions. 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 Continue Abilify 15 mg at bedtime. Continue Lexapro 10 mg daily. We will continue discuss with him a repeat LP under anesthesia. Encourage participation in therapeutic groups and activities. Evaluate clinical status response to treatment daily basis.
[2020-02-14] MEDS: ARIPiprazole 15 MG TAB PO SCH (20:27)
[2020-02-14] MEDS: LORazepam 0.5 MG TAB PO PRN (20:27)
[2020-02-15 05:39] VITALS: BP 118/80; PULSE 86; RESP 18
[2020-02-15] MEDS: POLYETHYLENE GLYCOL 3350 17 GM POWD.PACK PO SCH (07:49)
[2020-02-15] MEDS: ESCITALOPRAM 10 MG TAB PO SCH (07:50)
[2020-02-15] MEDS: LORazepam 0.5 MG TAB PO PRN (10:43)
[2020-02-15 13:22] VITALS: TEMP 98.5
--- NOTE | 2020-02-15 14:05 | P.DS ---
Providers Date of admission: 02/08/20 18:53 Attending physician: Kael Uribe MD Consults: 02/08/20 18:58 Consult Physician Routine Consulting Provider: Napoleon Kumar Consult Reason/Comments: medical management Do you want consulting provider notified?: Already Contacted 02/09/20 20:15 Consult Physician Routine Consulting Provider: Diogo Head Consult Reason/Comments: Rule out papilledema-per neurology Do you want consulting provider notified?: Yes Primary care physician: Napoleon Kumar - Discharge Diagnosis(es) (1) Schizophrenia Status: Acute Priority: High (2) Abnormal MRI of head Status: Acute Priority: Medium Hospital Course: He is a 24-year-old single male transferred back to psychiatry from medicine service. He initially presented to psychiatric unit on 01/29/2020 with a history of a marked change in his behavior and functioning. He was initially unable to provide a coherent history and did not understand the reason for this hospitalization. His grandfather provided the admission history. He apparently became unwell about 2 months prior to admission following a breakup of a long- term relationship. He had suicidal thoughts, confusion, paranoia and insomnia. He expressed suicidal thoughts to his grandfather as well as expressed a belief that there were cameras in his house and that people were watching him. He was catatonic when he initially arrived on the psychiatric unit. He was confused and appeared to be responding to internal stimuli. We treated him initially with Seroquel titrating the dose to 400 mg at bedtime and Lexapro 10 mg daily. He received multiple IM injections of Ativan and Geodon. When the catatonia resolved he began self harming. We placed him on one-to-one because he was choking himself. The self choking required 1 episode of seclusion and restraint. He then began head banging. The computed tomography scan was negative. The medical apparatus model maker was concerned about the patient's complaint of headache and the apparent fluctuation of his mental status. MRI was suggestive of increased intracranial pressure. The neurologist recommended a spinal tap with measurement opening and closing pressure. We transferred him to medicine service on 02/07/2020. EEG was normal. The interventional radiologist attempted to the spinal tap under fluoroscopy on 02/08/2020. The lumbar puncture was unsuccessful. The patient insisted to stop the procedure before completion. The patient would not consent to a another lumbar puncture under anesthesia. We decided to transfer him back to psychiatry service for continued treatment of his psychosis and continue discuss about the need for repeat lumbar puncture to evaluate increase CSF pressure. He complained of feeling overly sedated and requested a decrease in his medications. He again was unable to explain the reason for this hospitalization. We talked about his behavior when he first arrived on the unit including the catatonia, choking and head banging. He alleged that he was aware of hurting himself. He stated that "at that time it was the only way that I thought I could get out of here." I asked him if he still believes that since he replied "no. I was wrong." He denied a history of psychiatric hospitalizations. Denies he denied past history of mental health treatment We admitted him to the psychiatric unit and provided competent as a biopsychosocial assessment. We approached him several times but he would not consent to a repeat spinal tap even under anesthesia. As an alternative, the neurologist recommended an abrupt logical examination as an outpatient. He was compliant with medication and posed no management problem. He developed sedation with Seroquel any EPS with Haldol. We discontinued and prescribed Abilify. He showed a gradual improvement in his mental state with improved affective expression and increased engagement in social activities. However, he continued this showed marked impairment in executive functioning with very poor planning. He posed no management problem and no episodes of behavioral dyscontrol. He had no episodes of self-harm or episodes the catatonia during this hospitalization. At time of discharge He presented as a tall casually groomed male who was pleasant on approach. He had a blunted but bright facial expression. He was alert to person, place and time. He showed psychomotor retardation and a stiff slow gait. His speech was not spontaneous and had decreased rate, rhythm and volume. His affect was blunted but stable and appropriate. He denied suicidal ideation or wishes. He denied homicidal ideation. No junk hopeless, helpless or worthless. He did not express ideas reference or paranoid ideation. His thinking was concrete. Associations were coherent and goal directed. He denied hallucinations and did not appear to be responding to internal stimuli. Patient Condition at Discharge: Stable Plan - Discharge Summary New Discharge Prescriptions: New ARIPiprazole [Abilify] 15 mg PO HS #30 tab Continue Acetaminophen Tab [Tylenol] 650 mg PO Q6HR PRN tab PRN Reason: Mild Pain Or Fever > 100.5 Escitalopram [Lexapro] 10 mg PO DAILY #30 tab Discontinued LORazepam [Ativan] 1 mg PO TID PRN tab PRN Reason: Agitation Haloperidol [Haldol] 2.5 mg PO QID tab QUEtiapine [SEROquel] 400 mg PO HS tab Discharge Medication List Acetaminophen Tab [Tylenol] 650 mg PO Q6HR PRN tab 02/08/20 [Rx] ARIPiprazole [Abilify] 15 mg PO HS #30 tab 02/15/20 [Rx] Escitalopram [Lexapro] 10 mg PO DAILY #30 tab 02/15/20 [Rx] Follow up Appointment(s)/Referral(s): [facility] [Outside] - 02/19/20 10:00 am (alexa Hernandez by phone ) Patient Instructions/Handouts: Brief Psychotic Disorder (DC) Activity/Diet/Wound Care/Special Instructions: Per Dr. Snow, ophthalmological examination is recommended to evaluate for papilledema, Please call and make an apt. Follow up with Neurologist for LP Dr Ana Laura Snow/ Call any of these doctors for apt. Dr. Burdick , Dr. Guillen , Dr Jacques . Activity and diet as tolerated. Avoid the use of street drugs and alcohol. Take all medications as prescribed. When you are in need of refills on your medications please contact your medical provider and/or outpatient psychiatrist to have this done. Please go to scheduled outpatient appointment for aftercare treatment. If symptoms return or become worse, call the crisis line at and/or go to the nearest emergency room for evaluation. Discharge Disposition: HOME SELF-CARE
== END 2020-02-15 13:40 | disposition home or self-care (01) | DRG 885 ==
LOC: 3MHU 18:53
PROVIDERS: ADMIT Psychiatry & Neurology Psychiatry; ATTEND Psychiatry & Neurology Psychiatry
DX: F20.9 Schizophrenia, unspecified (principal); R45.851 Suicidal ideations; Z79.899 Other long term (current) drug therapy; K59.00 Constipation, unspecified; G47.00 Insomnia, unspecified; R51 Headache; R26.89 Other abnormalities of gait and mobility; R90.89 Other abnormal findings on diagnostic imaging of central nervous system

== ENCOUNTER 2020-07-07 12:46 | Emergency (ER) | payer MEDICAID, OTHER ==
--- NOTE | 2020-07-07 13:24 | ED ---
Abdominal Pain HPI - General Chief Complaint: Abdominal Pain Stated Complaint: abd pain Time Seen by Provider: 07/07/20 12:58 Source: patient, family, RN notes reviewed Mode of arrival: ambulatory Limitations: no limitations - History of Present Illness Initial Comments: This a 24-year-old male who is brought in by his grandfather who is his guardian complains of 2 days of left-sided abdominal pain. Crampy in nature /10 severity no overt nausea vomiting diarrheano dysuria no hematuria he also states her shoulder left flank area there is a family history of kidney stones remotely. Patient has no personal history of kidney stones of note he does have a history of depression and psychosis. Per his grandfather he's also been acting is a [facility] psychiatric help he's been paranoid thinking people are listening to him that his television is alert and to the hospital. No suicidal thoughts or ideations no homicidal thoughts or ideation. He isn't having trouble making decisions recently. He does apparently have an appointment tomorrow with a neurologist.additional information the patient received found out that his girlfriend from age 16 who broke up with him was with someone else's baby. MD Complaint: abdominal pain, other - Related Data Home Medications Medication Instructions Recorded Confirmed acetaZOLAMIDE [Diamox] 250 mg PO QID 07/07/20 07/07/20 diphenhydrAMINE [Benadryl] 25 mg PO QID PRN 07/07/20 07/07/20 traZODone HCL 25 - 50 mg PO HS 07/07/20 07/07/20 Previous Rx's Medication Instructions Recorded Escitalopram [Lexapro] 10 mg PO DAILY #30 tab 02/15/20 Dicyclomine [Bentyl] 10 mg PO TID PRN #12 capsule 07/07/20 Allergies Allergy/AdvReac Type Severity Reaction Status Date / Time No Known Allergies Allergy Verified 07/07/20 14:18 Review of Systems ROS Statement: Those systems with pertinent positive or pertinent negative responses have been documented in the HPI. ROS Other: All systems not noted in ROS Statement are negative. Past Medical History Past Medical History: No Reported History History of Any Multi-Drug Resistant Organisms: None Reported Past Surgical History: No Surgical Hx Reported Past Psychological History: Depression Smoking Status: Vaper Past Alcohol Use History: Rare Past Drug Use History: Marijuana General Exam - General Exam Comments Initial Comments: his is a well-developed well-nourished awake alert oriented times 3 male who does seem to have some trouble responding to questions Limitations: no limitations General appearance: alert, anxious Head exam: Present: atraumatic, normocephalic, normal inspection Eye exam: Present: normal appearance, PERRL, EOMI. Absent: scleral icterus, conjunctival injection, periorbital swelling ENT exam: Present: normal exam, mucous membranes moist Neck exam: Present: normal inspection. Absent: tenderness, meningismus, lymph adenopathy Respiratory exam: Present: normal lung sounds bilaterally. Absent: respiratory distress, wheezes, rales, rhonchi, stridor Cardiovascular Exam: Present: regular rate, normal rhythm, normal heart sounds. Absent: systolic murmur, diastolic murmur, rubs, gallop, clicks GI/Abdominal exam: Present: soft, tenderness (mild left sided tenderness palpation no guarding rebound masses or bruits some mild left flank pain and palpation.), normal bowel sounds. Absent: distended, guarding, rebound, rigid Extremities exam: Present: normal inspection, full ROM, normal capillary refill. Absent: tenderness, pedal edema, joint swelling, calf tenderness Back exam: Present: normal inspection Neurological exam: Present: alert, oriented X3, CN II-XII intact Psychiatric exam: Present: normal mood, flat affect. Absent: suicidal ideation Skin exam: Present: warm, dry, intact, normal color. Absent: rash Course Vital Signs 07/07/20 12:47 Temperature 99.2 F Pulse Rate 78 Respiratory 18 Rate Blood Pressure 118/78 O2 Sat by Pulse 99 Oximetry Medical Decision Making - Medical Decision Making Patient is feeling improved I did discuss the findings with him he will be discharged the presentation medically is likely secondary to spastic colon. The patient will be referred outpatient for care with [facility]. - Lab Data Result diagrams: 07/07/20 13:17 07/07/20 13:17 Lab Results 07/07/20 07/07/20 07/07/20 Range/Units 13:17 13:17 13:17 WBC 6.8 (3.8-10.6) k/uL RBC 5.39 (4.30-5.90) m/uL Hgb 15.2 (13.0-17.5) gm/dL Hct 46.7 (39.0-53.0) % MCV 86.7 (80.0-100.0) fL MCH 28.2 (25.0-35.0) pg MCHC 32.5 (31.0-37.0) g/dL RDW 13.6 (11.5-15.5) % Plt Count 275 (150-450) k/uL Neutrophils % 67 % Lymphocytes % 21 % Monocytes % 7 % Eosinophils % 1 % Basophils % 0 % Neutrophils # 4.6 (1.3-7.7) k/uL Lymphocytes # 1.4 (1.0-4.8) k/uL Monocytes # 0.5 (0-1.0) k/uL Eosinophils # 0.0 (0-0.7) k/uL Basophils # 0.0 (0-0.2) k/uL Sodium 138 (137-145) mmol/L Potassium 4.0 (3.5-5.1) mmol/L Chloride 108 H (98-107) mmol/L Carbon Dioxide 22 (22-30) mmol/L Anion Gap 8 mmol/L BUN 18 (9-20) mg/dL Creatinine 1.24 (0.66-1.25) mg/dL Est GFR (CKD-EPI)AfAm >90 (>60 ml/min/1.73 sqM) Est GFR (CKD-EPI)NonAf 81 (>60 ml/min/1.73 sqM) Glucose 130 H (74-99) mg/dL Plasma Lactic Acid Jasvir 1.4 (0.7-2.0) mmol/L Calcium 10.0 (8.4-10.2) mg/dL Total Bilirubin 0.4 (0.2-1.3) mg/dL AST 24 (17-59) U/L ALT 22 (4-49) U/L Alkaline Phosphatase 59 (38-126) U/L Creatine Kinase 55 (55-170) U/L Total Protein 7.0 (6.3-8.2) g/dL Albumin 4.5 (3.5-5.0) g/dL Amylase 53 (30-110) U/L Lipase 103 (23-300) U/L Urine Color Urine Appearance (Clear) Urine pH (5.0-8.0) Ur Specific [place] (1.001-1.035) Urine Protein (Negative) Urine Glucose (UA) (Negative) Urine Ketones (Negative) Urine Blood (Negative) Urine Nitrite (Negative) Urine Bilirubin (Negative) Urine Urobilinogen (<2.0) mg/dL Ur Leukocyte Esterase (Negative) Urine RBC (0-5) /hpf Urine WBC (0-5) /hpf Urine Mucus (None) /hpf Urine Opiates Screen (NotDetected) Ur Oxycodone Screen (NotDetected) Urine Methadone Screen (NotDetected) Ur Propoxyphene Screen (NotDetected) Ur Barbiturates Screen (NotDetected) U Tricyclic Antidepress (NotDetected) Ur Phencyclidine Scrn (NotDetected) Ur Amphetamines Screen (NotDetected) U Methamphetamines Scrn (NotDetected) U Benzodiazepines Scrn (NotDetected) Urine Cocaine Screen (NotDetected) U Marijuana (THC) Screen (NotDetected) Serum Alcohol <10 mg/dL 07/07/20 Range/Units 13:34 WBC (3.8-10.6) k/uL RBC (4.30-5.90) m/uL Hgb (13.0-17.5) gm/dL Hct (39.0-53.0) % MCV (80.0-100.0) fL MCH (25.0-35.0) pg MCHC (31.0-37.0) g/dL RDW (11.5-15.5) % Plt Count (150-450) k/uL Neutrophils % % Lymphocytes % % Monocytes % % Eosinophils % % Basophils % % Neutrophils # (1.3-7.7) k/uL Lymphocytes # (1.0-4.8) k/uL Monocytes # (0-1.0) k/uL Eosinophils # (0-0.7) k/uL Basophils # (0-0.2) k/uL Sodium (137-145) mmol/L Potassium (3.5-5.1) mmol/L Chloride (98-107) mmol/L Carbon Dioxide (22-30) mmol/L Anion Gap mmol/L BUN (9-20) mg/dL Creatinine (0.66-1.25) mg/dL Est GFR (CKD-EPI)AfAm (>60 ml/min/1.73 sqM) Est GFR (CKD-EPI)NonAf (>60 ml/min/1.73 sqM) Glucose (74-99) mg/dL Plasma Lactic Acid Jasvir (0.7-2.0) mmol/L Calcium (8.4-10.2) mg/dL Total Bilirubin (0.2-1.3) mg/dL AST (17-59) U/L ALT (4-49) U/L Alkaline Phosphatase (38-126) U/L Creatine Kinase (55-170) U/L Total Protein (6.3-8.2) g/dL Albumin (3.5-5.0) g/dL Amylase (30-110) U/L Lipase (23-300) U/L Urine Color Yellow Urine Appearance Clear (Clear) Urine pH 8.0 (5.0-8.0) Ur Specific [place] 1.005 (1.001-1.035) Urine Protein Negative (Negative) Urine Glucose (UA) Negative (Negative) Urine Ketones Negative (Negative) Urine Blood Small (Negative) Urine Nitrite Negative (Negative) Urine Bilirubin Negative (Negative) Urine Urobilinogen <2.0 (<2.0) mg/dL Ur Leukocyte Esterase Negative (Negative) Urine RBC <1 (0-5) /hpf Urine WBC 1 (0-5) /hpf Urine Mucus Rare H (None) /hpf Urine Opiates Screen Not Detected (NotDetected) Ur Oxycodone Screen Not Detected (NotDetected) Urine Methadone Screen Not Detected (NotDetected) Ur Propoxyphene Screen Not Detected (NotDetected) Ur Barbiturates Screen Not Detected (NotDetected) U Tricyclic Antidepress Not Detected (NotDetected) Ur Phencyclidine Scrn Not Detected (NotDetected) Ur Amphetamines Screen Not Detected (NotDetected) U Methamphetamines Scrn Not Detected (NotDetected) U Benzodiazepines Scrn Not Detected (NotDetected) Urine Cocaine Screen Not Detected (NotDetected) U Marijuana (THC) Screen Detected H (NotDetected) Serum Alcohol mg/dL - Radiology Data Radiology results: report reviewed (I did review the imaging and report no acute findings.), image reviewed Disposition Clinical Impression: Spastic colon, Adjustment disorder Disposition: HOME SELF-CARE Condition: Good Instructions (If sedation given, give patient instructions): Irritable Bowel Syndrome (ED), Mood Disorders (ED) Additional Instructions: medication prescriptions sent to your preferred pharmacy Prescriptions: Dicyclomine [Bentyl] 10 mg PO TID PRN #12 capsule PRN Reason: Pain Is patient prescribed a controlled substance at d/c from ED?: No Referrals: Lennox Kovacs DO [Primary Care Provider] - 1-2 days
[2020-07-07] MEDS ORDERED: KETOROLAC 15 MG/ML 1 ML VIAL IVP STA (13:29)
[2020-07-07 13:54] LABS: Basophils % (A) 0 %; Eosinophils % (A) 1 %; HCT 46.7 % (39.0-53.0); HGB 15.2 gm/dL (13.0-17.5); Lymphocytes # (A) 1.4 k/uL (1.0-4.8); Lymphocytes % (A) 21 %; MCH 28.2 pg (25.0-35.0); MCHC 32.5 g/dL (31.0-37.0); MCV 86.7 fL (80.0-100.0); Mean Platelet Volume 7.7; Monocytes # (A) 0.5 k/uL (0-1.0); Monocytes % (A) 7 %; Neutrophils # (A) 4.6 k/uL (1.3-7.7); Neutrophils % (A) 67 %; Platelet Count 275 k/uL (150-450); RBC 5.39 m/uL (4.30-5.90); RDW 13.6 % (11.5-15.5); WBC 6.8 k/uL (3.8-10.6)
[2020-07-07 13:57] LABS: ALT 22 U/L (4-49); AST 24 U/L (17-59); African American GFR (CKD) >90 (>60 ml/min/1.73 sqM); Albumin 4.5 g/dL (3.5-5.0); Alcohol <10 mg/dL; Alkaline Phosphatase 59 U/L (38-126); Amylase 53 U/L (30-110); Anion Gap 8 mmol/L; Blood Urea Nitrogen 18 mg/dL (9-20); Carbon Dioxide 22 mmol/L (22-30); Chloride 108 mmol/L (98-107); Creatine Kinase 55 U/L (55-170); Glucose 130 mg/dL (74-99); Lipase 103 U/L (23-300); Non-African American GFR(CKD) 81 (>60 ml/min/1.73 sqM); Sodium 138 mmol/L (137-145); Total Bilirubin 0.4 mg/dL (0.2-1.3)
--- NOTE | 2020-07-07 13:59 | XR ---
EXAMINATION TYPE: XR KUB DATE OF EXAM: 07/07/2020 1:55 PM CLINICAL HISTORY: Left-sided flank pain. TECHNIQUE: Two Upright KUB images of the abdomen are obtained. COMPARISON: None. FINDINGS: Gas is seen in nondistended stomach bubble. Scattered gas is seen in non-distended small farhat wel loops. Gas and fecal material is seen in non-distended colon. There is no visceromegaly, pneumope ritoneum, or abnormal calcification appreciated. The lung bases are clear and the osseous structures are intact. IMPRESSION: Overall nonobstructive bowel gas pattern. No definite nephrolithiasis.
[2020-07-07 14:03] LABS: Mucus,Urine Rare /hpf; RBC,Urine <1 /hpf (0-5); WBC,Urine 1 /hpf (0-5)
[2020-07-07 14:04] LABS: Appearance,Urine Clear (Clear); Color,Urine Yellow; Specific Gravity,Urine 1.005 (1.001-1.035)
[2020-07-07 14:05] LABS: Bilirubin,Urine Negative (Negative); Blood,Urine Small (Negative); Glucose,Urine (UA) Negative (Negative); Ketones,Urine Negative (Negative); Protein,Urine Negative (Negative)
[2020-07-07 14:06] LABS: Leukocyte Esterase,Urine Negative (Negative); Nitrite,Urine Negative (Negative); Urobilinogen,Urine <2.0 mg/dL (<2.0)
[2020-07-07 14:28] LABS: Amphetamine Screen,Urine Not Detected (NotDetected); Barbiturate Screen,Urine Not Detected (NotDetected); Benzodiazepines Screen,Urine Not Detected (NotDetected); Cocaine Screen,Urine Not Detected (NotDetected); Methadone Screen, Urine Not Detected (NotDetected); Opiate Screen,Urine Not Detected (NotDetected); Oxycodone Screen, Urine Not Detected (NotDetected); Phencyclidine Screen,Urine Not Detected (NotDetected); Tricyclic Antidepressant,Urine Not Detected (NotDetected); Urn Cannabinoid Scrn Detected (NotDetected)
[2020-07-07 17:36] VITALS: BP 131/71; PULSE 62; RESP 16; TEMP 98.2
== END 2020-07-07 17:36 | disposition home or self-care (01) ==
LOC: EEVIPCON 12:46 → EC 12:46
DX: K58.9 Irritable bowel syndrome, unspecified (principal); F43.20 Adjustment disorder, unspecified; F32.9 Major depressive disorder, single episode, unspecified; F17.290 Nicotine dependence, other tobacco product, uncomplicated; Z79.899 Other long term (current) drug therapy
CPT/HCPCS: 36415; 80053; 82150; 82550; 83605; 83690; 85025; 81001; 74018; 80306; 99284; 96374; G0480; J1885; 80320

== ENCOUNTER 2020-07-20 16:54 | Inpatient (IN) | payer MEDICAID, OTHER ==
--- NOTE | 2020-07-20 17:12 | ED ---
Psych HPI - General Chief Complaint: Psychiatric Symptoms Stated Complaint: pickup order Time Seen by Provider: 07/20/20 17:08 Source: patient, family Mode of arrival: ambulatory - History of Present Illness Initial Comments: 24-year-old male with history of depression presenting to emergency department for psychiatric evaluation. Patient brought to the ED via police department and his grandfather per Court pickup order. Patient was supposed to show up for a court hearing but he missed it. He supposed to be taking olanzapine, Lexapro but he has decided not to take him because he believes they can injure his liver. He denies any homicidal, suicidal thoughts or ideations. Patient has no other complaints. - Related Data Home Medications Medication Instructions Recorded Confirmed acetaZOLAMIDE [Diamox] 250 mg PO QID 07/07/20 07/07/20 diphenhydrAMINE [Benadryl] 25 mg PO QID PRN 07/07/20 07/07/20 traZODone HCL 25 - 50 mg PO HS 07/07/20 07/07/20 Previous Rx's Medication Instructions Recorded Escitalopram [Lexapro] 10 mg PO DAILY #30 tab 02/15/20 Dicyclomine [Bentyl] 10 mg PO TID PRN #12 capsule 07/07/20 Allergies Allergy/AdvReac Type Severity Reaction Status Date / Time No Known Allergies Allergy Verified 07/20/20 16:57 Review of Systems ROS Statement: Those systems with pertinent positive or pertinent negative responses have been documented in the HPI. ROS Other: All systems not noted in ROS Statement are negative. Past Medical History Past Medical History: No Reported History History of Any Multi-Drug Resistant Organisms: None Reported Past Surgical History: No Surgical Hx Reported Past Psychological History: Depression Smoking Status: Vaper Past Alcohol Use History: Rare Past Drug Use History: Marijuana General Exam Limitations: no limitations General appearance: alert, in no apparent distress Head exam: Present: atraumatic, normocephalic, normal inspection Eye exam: Present: normal appearance, PERRL, EOMI Pupils: Present: normal accommodation ENT exam: Present: normal exam, normal oropharynx, mucous membranes moist, TM's normal bilaterally, normal external ear exam Neck exam: Present: normal inspection, full ROM. Absent: tenderness Respiratory exam: Present: normal lung sounds bilaterally. Absent: respiratory distress, wheezes, rales Cardiovascular Exam: Present: regular rate, normal rhythm, normal heart sounds. Absent: systolic murmur, diastolic murmur GI/Abdominal exam: Present: soft. Absent: distended, tenderness, guarding, rebound Extremities exam: Present: normal inspection, full ROM, normal capillary refill. Absent: tenderness, calf tenderness Back exam: Present: normal inspection, full ROM. Absent: tenderness, CVA tenderness (R), CVA tenderness (L) Neurological exam: Present: alert, oriented X3, normal gait Psychiatric exam: Present: normal affect, normal mood. Absent: depressed, agitated Skin exam: Present: warm, dry, intact, normal color Course Vital Signs 07/20/20 16:57 Temperature 98.1 F Pulse Rate 87 Respiratory 16 Rate Blood Pressure 145/85 O2 Sat by Pulse 100 Oximetry Medical Decision Making - Medical Decision Making 24-year-old male with history of depression presenting to the emergency department for psychiatric evaluation. He is here per pickup court order. Physical examination is unremarkable. Patient has not taken his meds. No homicidal suicidal thoughts or ideations. Urine drug screen is negative. EPS evaluation pending. At this time, patient care signed off to - Lab Data Lab Results 07/20/20 Range/Units 17:58 Urine Opiates Screen Not Detected (NotDetected) Ur Oxycodone Screen Not Detected (NotDetected) Urine Methadone Screen Not Detected (NotDetected) Ur Propoxyphene Screen Not Detected (NotDetected) Ur Barbiturates Screen Not Detected (NotDetected) U Tricyclic Antidepress Not Detected (NotDetected) Ur Phencyclidine Scrn Not Detected (NotDetected) Ur Amphetamines Screen Not Detected (NotDetected) U Methamphetamines Scrn Not Detected (NotDetected) U Benzodiazepines Scrn Not Detected (NotDetected) Urine Cocaine Screen Not Detected (NotDetected) U Marijuana (THC) Screen Not Detected (NotDetected) Disposition Referrals: Lennox Kovacs DO [Primary Care Provider] - 1-2 days
[2020-07-20 18:21] LABS: Amphetamine Screen,Urine Not Detected (NotDetected); Barbiturate Screen,Urine Not Detected (NotDetected); Benzodiazepines Screen,Urine Not Detected (NotDetected); Cocaine Screen,Urine Not Detected (NotDetected); Methadone Screen, Urine Not Detected (NotDetected); Opiate Screen,Urine Not Detected (NotDetected); Oxycodone Screen, Urine Not Detected (NotDetected); Phencyclidine Screen,Urine Not Detected (NotDetected); Tricyclic Antidepressant,Urine Not Detected (NotDetected); Urn Cannabinoid Scrn Not Detected (NotDetected)
[2020-07-20] MEDS: acetaZOLAMIDE 250 MG TAB PO SCH (22:53)
[2020-07-20] MEDS ORDERED: OLANZapine 7.5 MG TAB PO ONE (23:30)
[2020-07-21] MEDS ORDERED: ESCITALOPRAM 10 MG TAB PO ONE (09:00)
[2020-07-21] MEDS: acetaZOLAMIDE 250 MG TAB PO SCH ×4 (10:06→21:49)
[2020-07-21] MEDS ORDERED: MAG HYDROX/AL HYDROX/SIMETH 30 ML CUP PO PRN (13:14)
[2020-07-21] MEDS ORDERED: LORazepam 1 MG TAB PO PRN (13:14)
[2020-07-21] MEDS ORDERED: MAGNESIUM HYDROXIDE 2,400 MG/10 ML CUP PO PRN (13:14)
[2020-07-21] MEDS ORDERED: HALOPERIDOL LACTATE 5 MG/ML 1 ML VIAL IM PRN (13:15)
[2020-07-21] MEDS ORDERED: LORazepam 2 MG/ML INJ IM PRN (13:15)
--- NOTE | 2020-07-21 22:33 | P.CONS ---
History of Present Illness - Reason for Consult Consult date: 07/21/20 Medical management Requesting physician: Kael Uribe - Chief Complaint Not taking medications - History of Present Illness History of presenting complaint: This is a 24-year-old patient of Dr. Kovacs . Has a diagnosis of major depression with psychosis. Patient brought to the ER with the Police Department in his grandfather, her court order for pickup. Patient is supposed to go for her court hearing but he missed the same. Was supposed to take Lexapro, olanzapine. But he was concerned about liver side effects decided not to take it. Patient has some anxiety. Denies being very depressed. Appetite is fair. No change in bowel movements. Some trouble sleeping. Denies hearing voices. Or seeing things. 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 No fever no chills. No shortness of breath. Review of systems: GEN.: None EYES: None HEENT: None NECK: None RESPIRATORY: None CARDIOVASCULAR: None GASTROINTESTINAL: None GENITOURINARY: None MUSCULOSKELETAL: None LYMPHATICS: None HEMATOLOGICAL: None PSYCHIATRY: A bit anxious NEUROLOGICAL: Some trouble sleeping Past medical history to include: Major depression with psychosis Social history: No smoking. Alcohol rarely. Has smoked marijuana in the past. Lives with his grandparents. 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 Conjunctiva normal. HEENT: External appearance of nose and ears normal, oral cavity grossly normal. NECK: JVD not raised; masses not palpable. HEART: First and second heart sounds are normal; no edema. LUNGS: Respiratory rate normal; clear to auscultation. ABDOMEN: Soft, nontender, liver spleen not palpable, no masses palpable. PSYCH: Answering questions appropriately. Appears a bit low NEUROLOGICAL: Cranial nerves grossly intact; no facial asymmetry, power and sensation grossly intact. LYMPHATICS: No lymph nodes palpable in the axilla and neck INVESTIGATIONS, reviewed in the clinical context: Urine drug screen negative COVID 19 PCR not detected Assessment: -History of major depression with psychosis -Abnormal sleep behavior Plan: Continue current medication treatment plan. Hopefully this medication recently better. Follow-up with his family doctor upon discharge Thank you Dr. Uribe Past Medical History Past Medical History: No Reported History History of Any Multi-Drug Resistant Organisms: None Reported Past Surgical History: No Surgical Hx Reported Smoking Status: Never smoker Medications and Allergies Home Medications Medication Instructions Recorded Confirmed Type Escitalopram [Lexapro] 10 mg PO DAILY #30 tab 02/15/20 07/20/20 Rx acetaZOLAMIDE [Diamox] 250 mg PO QID 07/07/20 07/20/20 History diphenhydrAMINE [Benadryl] 25 mg PO QID PRN 07/07/20 07/20/20 History traZODone HCL 25 - 50 mg PO HS 07/07/20 07/20/20 History OLANZapine [ZyPREXA] 7.5 mg PO HS 07/20/20 07/20/20 History Allergies Allergy/AdvReac Type Severity Reaction Status Date / Time No Known Allergies Allergy Verified 07/21/20 14:32 Physical Exam Vitals: Vital Signs Temp Pulse Pulse Resp BP BP Pulse Ox 07/21/20 18:35 98.3 F 07/21/20 14:19 98.2 F 66 16 118/62 98 07/21/20 06:21 71 16 123/64 98 Intake and Output 07/21/20 07/21/20 07/21/20 06:59 14:59 22:59 Other: Weight 82.5 kg 82.5 kg
[2020-07-22] MEDS: acetaZOLAMIDE 250 MG TAB PO SCH ×4 (07:52→21:16)
[2020-07-22 10:56] LABS: ALT 25 U/L (4-49); AST 29 U/L (17-59); African American GFR (CKD) >90 (>60 ml/min/1.73 sqM); Albumin 4.9 g/dL (3.5-5.0); Alkaline Phosphatase 75 U/L (38-126); Anion Gap 7 mmol/L; Blood Urea Nitrogen 18 mg/dL (9-20); Calcium 10.5 mg/dL (8.4-10.2); Carbon Dioxide 27 mmol/L (22-30); Chloride 105 mmol/L (98-107); Cholesterol 230 mg/dL (<200); Glucose 86 mg/dL (74-99); HDL Cholesterol 56 mg/dL (40-60); Non-African American GFR(CKD) 78 (>60 ml/min/1.73 sqM); Potassium 4.9 mmol/L (3.5-5.1); Sodium 139 mmol/L (137-145); Total Bilirubin 0.5 mg/dL (0.2-1.3); Total Protein 7.7 g/dL (6.3-8.2); Triglycerides 411 mg/dL (<150)
[2020-07-22 11:14] LABS: Basophils # (A) 0.1 k/uL (0-0.2); Basophils % (A) 1 %; Eosinophils # (A) 0.2 k/uL (0-0.7); Eosinophils % (A) 3 %; HCT 47.6 % (39.0-53.0); HGB 16.1 gm/dL (13.0-17.5); Lymphocytes # (A) 2.2 k/uL (1.0-4.8); Lymphocytes % (A) 31 %; MCH 29.7 pg (25.0-35.0); MCHC 33.7 g/dL (31.0-37.0); MCV 88.2 fL (80.0-100.0); Mean Platelet Volume 8.1; Monocytes # (A) 0.6 k/uL (0-1.0); Monocytes % (A) 9 %; Neutrophils # (A) 3.8 k/uL (1.3-7.7); Neutrophils % (A) 53 %; Platelet Count 243 k/uL (150-450); RDW 13.5 % (11.5-15.5); WBC 7.2 k/uL (3.8-10.6)
--- NOTE | 2020-07-22 11:39 | P.HP ---
Psychiatric H&P - . H&P Date: 07/22/20 History & Physical: IDENTIFYING DATA: Sergio is a 24-year-old single male admitted to the psychiatric unit involuntarily. [facility] initiated a demand for hearing because he is not been compliant with outpatient treatment. HISTORY OF PRESENT ILLNESS: He was discharged from our psychiatric unit in February 2020 with a diagnosis of unspecified psychosis disorder and abnormal MRI of the head. That admission was involuntarily and he agreed to a deferral which expires 07/17/2020. He was unable to explain the reason for this hospitalization. He acknowledged that sometimes she misses his appointments at [facility] and "sometimes" does not take his medication. He was most keen on being discharged alleging that he does not have a mental illness and there is no reason for this hospitalization. The most recent medication review at [facility] notes that he is having difficulty keeping his appointments as well as taking his medications as prescribed. He told the nurse practitioner that he sometimes feels paranoid. He feels that a radio station is talking about him and that people are watching him. He also complained that people outside his apartment or's "spinning their tires" to annoy him. His social studies department chair spoke with his grandfather who is now the legal guardian. His grandfather stated he was doing well after discharge. During the summer he experience contracture of the hands. Apparently the providers the [facility] suspected that the contracture may be a dystonic reaction and discontinued Abilify. The father complained to the social studies department chair that "they" have been trying to adjust his medications since. Sergio denied problems or concerns. He denied feeling depressed or having thoughts of or suicide. He denied persistent uncontrolled anxiety. He denied feeling paranoid or suspicious. He alleged that the issues noted in the [facility] medication review note were misunderstandings. During our interview he denied that he feels as though the radio stations talk about him or that he receives messages through his grandfathers Brisa devices. He denied that he feels as though people are watching him or that there are "cameras" spying on him. When I asked about the "cameras" he talked about his grandfather having security cameras in his home. He denied experiencing auditory, visual or olfactory hallucinations. He denied use of alcohol or drugs. His UDS was negative and his breath alcohol level was 0. PAST PSYCHIATRIC HISTORY: His only psychiatric hospitalization was sought to our unit in February 2020. He was initially admitted on 02/07/2020 in a catatonic state and transferred to medicine on 02/08/2020 for evaluation of an apparent increased perineural fluid surrounding the optic nerve suggestive of a pseudotumor cerebri. The evaluation was inconclusive because he prematurely aborted the spinal tap. The senior telecommunications consultant neurologist noted that he does not have other signs or symptoms consistent with pseudotumor cerebri. The information from [facility] suggests that he may have had a spinal tap as an outpatient. He is currently treated with Diamox 250 mg 4 times a day for the purported diagnosis of hydrocephalus. 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 His outpatient medications are trazodone 25-50 mg at bedtime when necessary for sleep, olanzapine 7.5 mg at bedtime and Lexapro 10 mg daily. PAST MEDICAL HISTORY: Other than the information provided above he has no other major medical problems. ALLERGIES: NO KNOWN DRUG ALLERGIES SUBSTANCE USE HISTORY: He has a history of cannabis use. He is never been any substance abuse treatment program. FAMILY PSYCHIATRIC/SUBSTANCE USE HISTORY: He is unaware of family history of mental health or substance use problems. LEGAL HISTORY: His grandfather his legal guardian. He is not on probation, parole or has pending charges. SOCIAL HISTORY: He was born and raised in [place] by his mother and extended family. His parents when he was young. He has a younger brother and sister. He graduated from high school. He is not in the . He was single and has no children. She was living with his grandpa his parents after discharge UNTIL approximately 2 weeks prior to admission when he moved into an apartment. 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 MENTAL STATUS EXAM: She presented as a tall casually groomed male who was pleasant on approach. He made eye contact and attended to interview. He had no distinguishing features or prominent physical abnormalities. He had a blunted but bright facial expression. He was alert and oriented to person, place and time. He showed slight psychomotor retardation but overall involuntary movements. His speech was spontaneous with decreased rate but normal volume. His affect was blunted but stable and appropriate. He denied suicidal ideation or wishes. He denied homicidal ideation. He denied feeling hopeless, helpless or worthless. He ruminated about the circumstances that brought him to the hospital and perseverated on not having a mental illness or needing psychiatric treatment. He did not express clear ideas reference, paranoid ideation or delusions during our interview. His thinking was very concrete but his associations were goal directed. He denied hallucinations and did not appear to be responding to internal stimuli. Global impression is average. He has limited awareness or understanding of his illness and need for treatment. STRENGTHS: Good physical health, supportive family, guardian to assist in decision-making WEAKNESSES: Or compliance with treatment, lack of insight or understanding of his mental illness and need for treatment IMPRESSION: He is a 24-year-old single male readmitted to the psychiatric unit involuntarily on a demand for failing to follow through with outpatient treatment. His only other psychiatric hospitalization was to this unit in February of this year when he presented in a Sonic state. He gradually recovered with Abilify up to 10 mg daily. According to his grandfathers developed an apparent adverse reaction to the Abilify. When the medication was changed his overall functioning and decrease. He denied psychotic symptoms and denies that he has a psychiatric illness and requires psychiatric treatment. The best be treated inpatient basis with combination of psychopharmacology and multimodal therapy. PRINCIPLE DIAGNOSIS: Unspecified psychotic disorder rule out schizophrenia, rule out psychosis secondary to another medical condition. RECOMMENDATION: Admit to the psychiatric unit. Safety precautions. Probate hearing pending. Begin Invega 6 mg daily with plan to switch to long-acting injectable. Consult medicine for initial physical exam and medical history. line worker to complete initial psychosocial assessment coordinate discharge and aftercare. Evaluate clinical status response to treatment on a daily basis. ] Allergies Allergy/AdvReac Type Severity Reaction Status Date / Time No Known Allergies Allergy Verified 07/21/20 14:32 Vital Signs Temp 98.2 F 07/22/20 06:41 Pulse 73 07/22/20 06:41 Resp 17 07/22/20 06:41 BP 110/54 07/22/20 06:41 Pulse Ox 98 07/22/20 06:41 Intake & Output 07/21/20 07/22/20 07/22/20 18:59 06:59 18:59 Weight 82.5 kg Laboratory Last Values Sodium 139 mmol/L (137-145) 07/22/20 10:09 Potassium 4.9 mmol/L (3.5-5.1) 07/22/20 10:09 Chloride 105 mmol/L (98-107) 07/22/20 10:09 Carbon Dioxide 27 mmol/L (22-30) 07/22/20 10:09 Anion Gap 7 mmol/L 07/22/20 10:09 BUN 18 mg/dL (9-20) 07/22/20 10:09 Creatinine 1.28 mg/dL (0.66-1.25) H 07/22/20 10:09 Est GFR (CKD-EPI)AfAm >90 (>60 ml/min/1.73 sqM) 07/22/20 10:09 Est GFR (CKD-EPI)NonAf 78 (>60 ml/min/1.73 sqM) 07/22/20 10:09 Glucose 86 mg/dL (74-99) 07/22/20 10:09 Calcium 10.5 mg/dL (8.4-10.2) H 07/22/20 10:09 Total Bilirubin 0.5 mg/dL (0.2-1.3) 07/22/20 10:09 AST 29 U/L (17-59) 07/22/20 10:09 ALT 25 U/L (4-49) 07/22/20 10:09 Alkaline Phosphatase 75 U/L (38-126) 07/22/20 10:09 Total Protein 7.7 g/dL (6.3-8.2) 07/22/20 10:09 Albumin 4.9 g/dL (3.5-5.0) 07/22/20 10:09 Triglycerides 411 mg/dL (<150) H 07/22/20 10:09 Cholesterol 230 mg/dL (<200) H 07/22/20 10:09 LDL Cholesterol, Calc mg/dL (0-99) 07/22/20 10:09 HDL Cholesterol 56 mg/dL (40-60) 07/22/20 10:09 Urine Opiates Screen Not Detected (NotDetected) 07/20/20 17:58 Ur Oxycodone Screen Not Detected (NotDetected) 07/20/20 17:58 Urine Methadone Screen Not Detected (NotDetected) 07/20/20 17:58 Ur Propoxyphene Screen Not Detected (NotDetected) 07/20/20 17:58 Ur Barbiturates Screen Not Detected (NotDetected) 07/20/20 17:58 U Tricyclic Antidepress Not Detected (NotDetected) 07/20/20 17:58 Ur Phencyclidine Scrn Not Detected (NotDetected) 07/20/20 17:58 Ur Amphetamines Screen Not Detected (NotDetected) 07/20/20 17:58 U Methamphetamines Scrn Not Detected (NotDetected) 07/20/20 17:58 U Benzodiazepines Scrn Not Detected (NotDetected) 07/20/20 17:58 Urine Cocaine Screen Not Detected (NotDetected) 07/20/20 17:58 U Marijuana (THC) Screen Not Detected (NotDetected) 07/20/20 17:58 Coronavirus (PCR) Not Detected (Not Detectd) 07/21/20 12:34 07/22/20 11:10
[2020-07-23] MEDS: acetaZOLAMIDE 250 MG TAB PO SCH ×3 (09:00→21:15)
[2020-07-23] MEDS: PALIPERIDONE 6 MG TAB.ER.24 PO SCH ×2 (09:01→09:03)
--- NOTE | 2020-07-23 11:04 | P.PN ---
Progress Note - Text Progress Note Date: 07/23/20 Clinical Problems: Unspecified psychotic disorder rule out schizophrenia, rule out psychosis secondary to another medical condition Interim history: I reviewed the medical record, interviewed the patient and discuss his treatment and treatment plan during team meeting. I also spoke with his grandfather (legal guardian). Sergio complained about numbness and tingling in his hands and feet that he attributed to the Diamox. He was confused about the reason for this hospitalization and I spent much of the interview explaining the involuntary hospitalization process. He denied experiencing hallucinations, paranoia or thought disturbances (ideas reference, thought insertion, thought broadcasting or thought control). He denied feeling depressed or having thoughts of or suicide. He showed no insight or understanding of his mental illness or his treatment. He was surprised when I described the behavior he displayed during his first hospitalization. Sergio had a ophthalmological and a neurological evaluation as an outpatient. The neurological evaluation included a spinal tap. The target trimmer prescribed Diamox for the treatment of the perineural fluid accumulation. His grandfather stated that he was doing "better" when we discharged him in February. His grandfather thought that he was back to his normal self when they took a trip to [place] this summer to visit his mother. During the trip he developed a dystonic reaction and at the recommendation of the emergency room susan romero Sergio stopped taking Abilify. The grandfather complained that he was unaware that they could've treated the side effect with Benadryl. He doesn't think that has done as well on Zyprexa as he did when he was taking Abilify. Grandfather was unaware of the results of ophthalmological and neurological evaluation but agreed to arrange for us to receive copies of both assessments. He noted that during last ophthalmological examination the target trimmer recommended to decrease the Diamox 10/25/1949 milligrams 3 times a day. His grandfather complained that he has little motivation at home and has difficulty making decisions and initiating activities. He is compliant with medications and attending therapeutic groups and activities. Mental status exam: He presented as a casually groomed young male who was pleasant on approach. He made eye contact and appeared to attend to the interview. He had a blunted facial expression. He has slow but steady gait. He had no abnormal involuntary movements. Her speech was spontaneous with decreased rate, rhythm and volume. He had limited prosody. His affect was blunted almost flat. He did not express suicidal ideation, wishes or homicidal ideation. He denied feeling hopeless, helpless or worthless. He repeatedly denied that he is experiencing ideas reference, paranoid ideation, ideas reference or delusions. His thinking was very concrete but goal directed and organized. Assessment: He has prominent negative symptoms. I suspect that he has a schizophrenia but I cannot exclude the possibility of a neurological disorder. Plan: Continue inpatient treatment. The demand hearing is scheduled for 07/25/2020. Continue Invega 6 mg daily and transition to Invega Sustenna. Decrease Diamox to 250 mg 3 times a day. Continue Benadryl 2025 mg 4 times a day when necessary. Grandfather to fax copies of the ophthalmological and neurological evaluations. Encourage participation in therapeutic groups and act ivities. Evaluate clinical status response to treatment daily basis.
[2020-07-23] MEDS: ACETAMINOPHEN TAB 325 MG TAB PO PRN (16:36)
[2020-07-24] MEDS: PALIPERIDONE 6 MG TAB.ER.24 PO SCH (08:48)
[2020-07-24] MEDS: acetaZOLAMIDE 250 MG TAB PO SCH ×3 (08:48→21:49)
--- NOTE | 2020-07-24 11:01 | P.PN ---
Progress Note - Text Progress Note Date: 07/24/20 Clinical Problems: Unspecified psychotic disorder rule out schizophrenia, rule out psychosis secondary to another medical condition Interim history: I reviewed the medical record, interviewed the patient and discuss his treatment and treatment plan during team meeting. I received a report from [facility] for an MRI of the cervical and lumbosacral spine. Sergio was somatically preoccupied. He complained of numbness or tingling in hands and feet, headache and backache. He insisted that they I share the MRI report. He took the report of bulges and herniations of the cervical and lumbar spine as an explanation for his headaches and his backaches. He denies that he has a mental illness or requires treatment with a psychiatric medication. He specificly questions need for an antipsychotic medication maintaining that he is "not psychotic." I described his presentation during his initial hospitalization and talked about my conversation with his grandfather who described a marked improvement in his mood, thinking and judgment when he was taking Abilify. I told him that his grandfather complained that the was unable to function at work because he could not make decisions, initiate actions or follow through with a plan. He eventually agreed to continue with Abilify but expressed concerns about reexperiencing the dystonia he experienced with Abilify. Mental status exam: He presented as a casually groomed young male who was pleasant on approach. He made eye contact and appeared to attend to the interview. He had a blunted facial expression. He has slow but steady gait. He had no abnormal involuntary movements. Her speech was spontaneous with decreased rate, rhythm and volume. He had limited prosody. His affect was blunted. He did not express suicidal ideation, wishes or homicidal ideation. He denied feeling hopeless, helpless or worthless. He denied that he is experiencing ideas reference, paranoid ideation, ideas reference or delusions. His thinking was very concrete but goal directed and organized. Assessment: He has prominent negative symptoms. Overall, he appears moderately mentally ill and unchanged from admission. Plan: Continue inpatient treatment. The demand hearing is scheduled for 07/25/2020. Continue Invega 6 mg daily and transition to Invega Sustenna. Continue Diamox to 250 mg 3 times a day. Continue Benadryl 2025 mg 4 times a day when necessary. Awaiting additional reports from the neurologist and ship engines operating engineer. Encourage participation in therapeutic groups and activities. Evaluate clinical status response to treatment daily basis.
[2020-07-24] MEDS: diphenhydrAMINE 25 MG CAP PO PRN (16:34)
[2020-07-25] MEDS: PALIPERIDONE 6 MG TAB.ER.24 PO SCH (08:33)
[2020-07-25] MEDS: acetaZOLAMIDE 250 MG TAB PO SCH ×3 (08:34→21:21)
--- NOTE | 2020-07-25 11:43 | P.PN ---
Progress Note - Text Progress Note Date: 07/25/20 Clinical Problems: Unspecified psychotic disorder rule out schizophrenia, rule out psychosis secondary to another medical condition Interim history: I reviewed the medical record, interviewed the patient and discuss his treatment and treatment plan during team meeting. Sergio was again somatically preoccupied. He complained of of a "pounding" in his headand a racing heart. He complained that Diamox was causing a light sensitivity. He asked to review the results of his lab tests. appendectomy did not complained of side effects and lack specifically associated with Invega. Mental status exam: He presented as a casually groomed young male who was pleasant on approach. He made eye contact and appeared to attend to the interview. He had a blunted facial expression. He has slow but steady gait. He had no abnormal involuntary movements. Her speech was spontaneous, slow with decreased rate, rhythm and volume. He had limited prosody. His affect was blunted. He did not express suicidal ideation, wishes or homicidal ideation. He denied feeling hopeless, helpless or worthless. He denied that he is experiencing ideas reference, paranoid ideation, ideas reference or delusions. His thinking was very concrete but goal directed and organized. Assessment: He has prominent negative symptoms. Overall, he appears moderately mentally ill and unchanged from admission. Plan: Continue inpatient treatment. The demand hearing is scheduled for this afternoon. Continue Invega 6 mg daily, begin Invega Sustena 234mg on 07/27/20 and decrease oral Invega to 3mg daily after the injection until the next injection of Invega Sustenna. Continue Diamox to 250 mg 3 times a day. Continue Benadryl 2025 mg 4 times a day when necessary. Awaiting additional reports from the neurologist and content producer. Encourage participation in therapeutic groups and activities. Evaluate clinical status response to treatment daily basis.
[2020-07-25] MEDS: diphenhydrAMINE 25 MG CAP PO PRN (21:22)
[2020-07-26] MEDS: acetaZOLAMIDE 250 MG TAB PO SCH ×3 (08:36→21:33)
[2020-07-26] MEDS: PALIPERIDONE 6 MG TAB.ER.24 PO SCH (08:36)
--- NOTE | 2020-07-26 10:27 | P.PN ---
Progress Note - Text Progress Note Date: 07/26/20 Interval history: Patient was seen wandering the hallways and was directable and agreeable to s peak with designer writer. Patient appeared to have a calm demeanor and was fairly talkative with the designer writer. He was fairly agreeable to continue on with his medications and asked questions about his paliperidone. Patient was agreeable also to have the loading dose given in to him tomorrow. He claims that sometimes he feels his heart racing when he stands up too quickly and designer writer explained the potential adverse effects of tachycardia and orthostatic hypotension from the paliperidone and patient agreed. He states that he has been going to some groups and interacting with other people on the unit. He claims that his mood is "okay" and denies any depression today. He states that he was able to sleep fairly last night. At this time patient denies any suicidal or homicidal ideations intent or plan. Denies any Auditory or visual hallucinations. Patient denies any side effects from the medications and has been compliant with meds. Mental status exam: General Appearance: Patient appears to be stated age is alert, directable, and cooperative. Behavior: No agitated behavior. Patient is calm and directable Speech: Patient's speech is fluent and nonpressured. Mood/Affect: Mood is improving mildly, affect is congruent and constricted. Suicidality/Homicidality: Patient denies having any suicidal or homicidal ideation intent or plan. Perceptions: Patient denies any auditory or visual hallucinations. Though content/process: There is no evidence of any delusional thought content and thought process is linear and goal-directed. Rambles at times. Memory and concentration: AOX3, grossly intact for the purposes of this session Judgment and insight: improving mildly Assessment/Plan: Continue with current diagnosis. Patient continues to meet criteria for inpatient psychiatric admission for symptom stabilization and safety.Patient will be maintained on current psychotropic medication regimen. Patient will be due for his loading dose of Invega Sustenna tomorrow. Monitor for medication compliance and for any psychotropic medication side effects. Will continue to monitor ongoing response to treatment. Encouraged participation in milieu.
[2020-07-26] MEDS: diphenhydrAMINE 25 MG CAP PO PRN (21:34)
[2020-07-27 06:34] VITALS: RESP 16
[2020-07-27] MEDS ORDERED: PALIPERIDONE IM 234 MG/1.5 ML SYG IM ONE (09:00)
[2020-07-27] MEDS: PALIPERIDONE 6 MG TAB.ER.24 PO SCH (09:30)
[2020-07-27] MEDS: acetaZOLAMIDE 250 MG TAB PO SCH ×3 (09:30→20:37)
[2020-07-27] MEDS ORDERED: IBUPROFEN 600 MG TAB PO PRN (09:39)
--- NOTE | 2020-07-27 09:59 | P.PN ---
Progress Note - Text Progress Note Date: 07/27/20 Interval history: Patient was seen wandering the hallways after taking his medications as morning and was directable and agreeable to speak with blurb writer. Patient had several questions about his medications today and asked if he really needed to take his long-acting injection this morning. He asked about other options. Fruit Distributor spoke with him in depth about his concerns and the other medication options and patient was agreeable to take the Invega Sustenna. Patient appeared to have a calm demeanor and was fairly talkative with the blurb writer. He was fairly polite with blurb writer today. He claims that he has been getting an upset stomach every now and again suggest today. He denies any constipation or any nausea. He states that he has been going to some groups and interacting with other people on the unit. He claims that his mood is "ok" and denies any depression today. He states that he was able to sleep fairly last night. At this time patient denies any suicidal or homicidal ideations intent or plan. Denies any Auditory or visual hallucinations. Patient denies any side effects from the medications and has been compliant with meds. Mental status exam: General Appearance: Patient appears to be stated age is alert, directable, and cooperative. Behavior: No agitated behavior. Patient is calm and directable Speech: Patient's speech is fluent and nonpressured. Mood/Affect: Mood is improving mildly, affect is congruent and constricted. Suicidality/Homicidality: Patient denies having any suicidal or homicidal ideation intent or plan. Perceptions: Patient denies any auditory or visual hallucinations. Though content/process: There is no evidence of any delusional thought content and thought process is linear and goal-directed. Memory and concentration: AOX3, grossly intact for the purposes of this session Judgment and insight: improving mildly Assessment/Plan: Continue with current diagnosis. Patient continues to meet criteria for inpatient psychiatric admission for symptom stabilization and safety.Patient will be maintained on current psychotropic medication regimen. Patient will be due for his loading dose of Invega Sustenna today. Monitor for medication compliance and for any psychotropic medication side effects. Will continue to monitor ongoing response to treatment. Encouraged participation in milieu.
[2020-07-27] MEDS: NICOTINE POLACRILEX 2 MG GUM BUCCAL PRN ×3 (10:42→20:39)
[2020-07-27] MEDS: ACETAMINOPHEN TAB 325 MG TAB PO PRN (15:34)
[2020-07-28 06:39] VITALS: BP 132/73; PULSE 89
[2020-07-28] MEDS: acetaZOLAMIDE 250 MG TAB PO SCH (07:51)
[2020-07-28] MEDS ORDERED: PALIPERIDONE 3 MG TAB.ER.24 PO SCH (09:00)
--- NOTE | 2020-07-28 13:23 | P.DS ---
Providers Date of admission: 07/21/20 13:03 Attending physician: Kael Uribe MD Consults: 07/21/20 13:14 Consult Physician Routine Consulting Provider: Napoleon Kumar Consult Reason/Comments: H&P and medical Do you want consulting provider notified?: Yes Primary care physician: Lennox Kovacs - Days[place] Diagnosis(es) (1) Psychosis Current Visit: No Status: Acute Priority: High (2) History of closed head injury Current Visit: Yes Status: Chronic Priority: Low (3) Abnormal MRI of head Current Visit: No Status: Chronic Priority: Medium Hospital Course: HISTORY: Sergio is a 24-year-old single male admitted to the psychiatric unit involuntarily. [facility] initiated a demand for hearing because he is not been compliant with outpatient treatment. He was discharged from our psychiatric unit in February 2020 with a diagnosis of unspecified psychosis disorder and abnormal MRI of the head. That admission was involuntarily and he agreed to a deferral which expires 07/17/2020. He was unable to explain the reason for this hospitalization. He acknowledged that sometimes she misses his appointments at [facility] and "sometimes" does not take his medication. He was most keen on being discharged alleging that he does not have a mental illness and there is no reason for this hospitalization. The most recent medication review at [facility] notes that he is having difficulty keeping his appointments as well as taking his medications as prescribed. He told the nurse practitioner that he sometimes feels paranoid. He feels that a radio station is talking about him and that people are watching him. He also complained that people outside his apartment or's "spinning their tires" to annoy him. His social and political studies professor spoke with his grandfather who is now the legal guardian. His grandfather stated he was doing well after discharge. During the summer he exp erience contracture of the hands. Apparently the providers the [facility] suspected that the contracture may be a dystonic reaction and discontinued Abilify. The father complained to the social and political studies professor that "they" have been trying to adjust his medications since. Sergio denied problems or concerns. He denied feeling depressed or having thoughts of or suicide. He denied persistent uncontrolled anxiety. He denied feeling paranoid or suspicious. He alleged that the issues noted in the [facility] medication review note were misunderstandings. During our interview he denied that he feels as though the radio stations talk about him or that he receives messages through his grandfathers Brisa devices. He denied that he feels as though people are watching him or that there are "cameras" spying on him. When I asked about the "cameras" he talked about his grandfather having security cameras in his home. He denied experiencing auditory, visual or olfactory hallucinations. He denied use of alcohol or drugs. His UDS was negative and his breath alcohol level was 0. His only psychiatric hospitalization was sought to our unit in February 2020. He was initially admitted on 02/07/2020 in a catatonic state and transferred to medicine on 02/08/2020 for evaluation of an apparent increased perineural fluid surrounding the optic nerve suggestive of a pseudotumor cerebri. The evaluation was inconclusive because he prematurely aborted the spinal tap. The men's custom hair piece consultant neurologist noted that he does not have other signs or symptoms consistent with pseudotumor cerebri. The information from [facility] suggests that he may have had a spinal tap as an outpatient. He is currently treated with Diamox 250 mg 4 times a day for the purported diagnosis of hydrocephalus. 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 His outpatient medications are trazodone 25-50 mg at bedtime when necessary for sleep, olanzapine 7.5 mg at bedtime and Lexapro 10 mg daily. HOSPITAL COURSE: We admitted him to the psychiatric unit involuntarily. We provided a copy his biopsychosocial assessment. The men's custom hair piece consultant hose finisher completed initial physical exam and medical history and diagnosis and abnormal sleep pattern. He had his probate hearing on 07/25/2020 and he stipulated to the treatment order. He discontinue olanzapine and started Invega with the plan to transition to Invega Sustenna. We started Invega 6 mg daily. He had no adverse reactions and received his initial injection of Invega sustenna 07/27/2020. When I spoke with his grandfather requested medical records from the outpatient neurologist and motor route carrier. I only received a report of open MRI for the cervical and lumbar spine. He posed no management problem and had no episodes of behavioral dyscontrol. Initially avoided participating in milieu but bright gradually began to attend therapeutic groups and activities. MENTAL STATUS ON DISCHARGE: At time of discharge she presented as a tall casually dressed and groomed 24-year-old male who was pleasant on approach. He made eye contact and attended to the interview. He had no distinguishing features or prominent physical abnormalities. He reported but bright facial expression. He is alert and oriented to person, place and time. He showed no abnormality of psychomotor activity. He had no abnormal involuntary movements. His speech was spontaneous with normal rate and rhythm. His affect was bright. He denied suicidal ideation or wishes. He denied homicidal ideation. He denied feeling hopeless, helpless or worthless. He did not express ideas reference, paranoid ideation or delusional thoughts. His thinking was concrete but his associations were coherent, logical and goal directed. He denied hallucinations did not appear to be responding to internal stimuli. DISPOSITION: He returned to his former address. His next injection of Invega Sustenna 150 mg IM is due on 08/04/2020. He'll follow-up with [facility] Patient Condition at Discharge: Stable Plan - Discharge Summary Discharge Rx Participant: No New Discharge Prescriptions: New acetaZOLAMIDE [Diamox] 250 mg PO TID #90 tab Paliperidone IM [Invega Sustenna] 156 mg IM ONCE #1 syringe Nicotine Polacrilex [Nicorette] 2 mg BUCCAL Q4HR PRN gum PRN Reason: Nicotine Cravings Continue diphenhydrAMINE [Benadryl] 25 mg PO QID PRN PRN Reason: Allergy Symptoms Discontinued Escitalopram [Lexapro] 10 mg PO DAILY #30 tab traZODone HCL 25 - 50 mg PO HS acetaZOLAMIDE [Diamox] 250 mg PO QID OLANZapine [ZyPREXA] 7.5 mg PO HS Discharge Medication List diphenhydrAMINE [Benadryl] 25 mg PO QID PRN 07/07/20 [History] Nicotine Polacrilex [Nicorette] 2 mg BUCCAL Q4HR PRN gum 07/28/20 [Rx] Paliperidone IM [Invega Sustenna] 156 mg IM ONCE #1 syringe 07/28/20 [Rx] acetaZOLAMIDE [Diamox] 250 mg PO TID #90 tab 07/28/20 [Rx] Follow up Appointment(s)/Referral(s): [facility] [Outside] - 08/04/20 12:30 pm (08-04-20 @ 12:30 with FLUXER Jolly Perez at [facility] office 08-04-20 @ 2:30 with Sami Barry by phone) Lennox Kovacs, [Primary Care Provider] - 1-2 days Patient Instructions/Handouts: How to Stop Smoking (DC), Psychotic Disorder (DC) Activity/Diet/Wound Care/Special Instructions: Activity and diet as tolerated. Avoid the use of street drugs and alcohol. Take all medications as prescribed. When you are in need of refills on your medications please contact your medical provider and/or outpatient psychiatrist to have this done. Please go to scheduled outpatient appointment for aftercare treatment. If symptoms return or become worse, call the crisis line at and/or go to the nearest emergency room for evaluation. Discharge Disposition: HOME SELF-CARE
[2020-07-28 13:43] VITALS: TEMP 97.6
[2020-08-04] MEDS ORDERED: PALIPERIDONE IM 156 MG/ML SYG IM ONE (11:00)
== END 2020-07-28 14:35 | disposition home or self-care (01) | DRG 885 ==
LOC: EC 16:54 → 3MHU 07-21 13:03
PROVIDERS: ADMIT Psychiatry & Neurology Psychiatry; ATTEND Psychiatry & Neurology Psychiatry
DX: F29 Unspecified psychosis not due to a substance or known physiological condition (principal); G91.9 Hydrocephalus, unspecified; F41.9 Anxiety disorder, unspecified; F12.11 Cannabis abuse, in remission; G47.9 Sleep disorder, unspecified; M54.9 Dorsalgia, unspecified; Z20.828 Contact with and (suspected) exposure to other viral communicable diseases; Z87.820 Personal history of traumatic brain injury; Z79.899 Other long term (current) drug therapy
CPT/HCPCS: 80053; 80061; 80306; 82075; 83036; 84443; 85025; 87635; 99285